=== PATIENT | female | born 1945 ===

== ENCOUNTER 2024-05-12 20:52 | Outpatient (REF) | payer MEDICARE, SELFPAY ==
--- OUTSIDE RECORDS SUMMARY | 2024-05-12 20:56 | XMS_ITS | Encounter Summary ---
Author Organization [facility] Address [address] [place] [address] Care Team Providers Care Emr Trainer Name Role Phone Unavailable Primary Care Provider Unavailabl e Encounter Details Date Type Department Care Team (Late st Contact Info) Description 02/07/2008 10:50 EST Hospital Encounter [facility] [address] [place] [address] Odette Cox MD [address] [place] [phone] Social History Tobacco Use Types Packs/Day Years Used Date Smoking Tobacco: Never Smokeless Tobacco: Never Alcohol Use Standard Drinks/Week Comments Yes 0 (1 standard drink = 0.6 oz pur e alcohol) occasionally - wine Interpersonal Safety Answer Date Record ed Physically Hurt Never 10/30/2019 Verbally Threaten Not on file 10/30/2019 Comments Unknown Sex and Gender Information Value Date Recorded Sex Assigned at Not on file Legal Sex Female 18:35 EST Gender Identity Not on file Sexual Orientation Not on file documented as of this encounter Plan of Treatment Upcoming Encounters Date Type Department Care Team (Late st Contact Info) Description 07/12/2024 11:00 EDT Office Visit [facility] Endocrinology - [address] [place], [place] [phone] Dana Lee, DO [address] [place] [address] documented as of this encounter Visit Diagnoses Not on filedocumented in this encounter
--- OUTSIDE RECORDS SUMMARY | 2024-05-12 20:56 | XMS_ITS | Encounter Summary ---
Author Organization [facility] Address [address] [place] [address] Care Team Providers Care Slot Floorperson Name Role Phone Brittani Gardiner MD Primary Care Provider +1- [phone] Reason for Visit * Reason Comments Skin Exam annual full body Encounter Details Date Type Department Care Team (Late st Contact Info) Description 08/02/2013 11:00 EDT Office Visit [facility] Dermatology 5th Floor [facility] [address] [place] [address] Mae Diamond MD [address] [place] [address] [place] [phone] Neoplasm of unspecified nature of bone, soft tissue, and skin (Primary Dx) Social History Tobacco Use Types Packs/Day Years Used Date Smoking Tobacco: Never Alcohol Use Standard Drinks/Week Comments Yes 0 (1 standard drink = 0.6 oz pur e alcohol) occasionally - wine Comments Unknown Sex and Gender Information Value Date Recorded Sex Assigned at Not on file Legal Sex Female 18:35 EST Gender Identity Not on file Sexual Orientation Not on file documented as of this encounter Discharge Diagnoses Diagnosis V10.83 PERS HX SKIN MALIGNANCY NEC[ICD-9-CM] 702.11 SEBORRHEIC KERATOSIS INFLAMED[ICD-9-CM] 239.2 BONE/SKIN NEOPLASM NOS[ICD-9-CM] documented in this encounter Ordered Prescriptions Prescription Sig Dispense Quantity Refills Last Filled Start Date End Date urea (CARMOL) 20 % cream Apply topically twice a day to rough areas.. 40 g 1 08/02/2013 4 documented in this encounter Progress Notes * Mae iDamond MD - 08/02/2013 1119 EDT S: Visit for followup on skin cancer an actinic keratosis. She has several spots on her forearms. On her right forearm she has a longstanding spot which became irritated and elevated and was scraped off accidentally. It has returned to baseline. She has an irritated spot on her left clavicle and anitch spot on her back. Notes skin peeling on distal right foot only. O: Head to toe skin exam Scalp normal Face scattered lentigos Prior scar well healed Neck normal Back scattered larger bland seborrheic keratosis and goodwin angiomas Right forearm 4 mm irritated pink/choe keratosis, and almost identical lesion on left clavicle Left forearm 9 mm soft, doughy clearish papule Right toes distally scaly. Normal pulses, Normal warmth and refill. Not pattern c/w tinea. A: History of basal cell carcinoma and actinic keratosis P: Sunscreen and sun avoidance discussed Patient should perform regular self exam Regular followup as scheduled to detect new lesions Instruction given on what to look for in terms of worrisome lesions Patient told to call us with any concerning lesions prior to next visit A: Irritated seborrheic keratosis of the right arm and left clavicle P: CRYOSURGERY PROCEDURE NOTE PATIENT INFORMATION: Nereyda Aguilera [id number] 1945 [id number] 1945 DATE OF PROCEDURE: 08/02/2013 SURGEON: Mae Diamond MD CANDLE MOLDER HAND: none INDICATIONS: SITE/LESION TYPE/DIAGNOSIS: Lesion(s) A: Location: left anterior clavicle Lesion Type/Diagnosis: 1 irritated seborrheic keratosis(es) Lesion(s) B: Location: right forearm Lesion Type/Diagnosis: 1 irritated seborrheic keratosis(es) Liquid nitrogen cryosurgery was applied to a total of 2 lesion(s) on the above stated locations. The expected reaction and healing course were discussed, as well as the possibility of incomplete resolution and/or permanent dyspigmentation. The indication, risks, benefits and alternatives to this pro cedure were discussed in detail with the patient and all questions were answered. Verbal wound care instructions were given. COMPLICATIONS: none NOTE: Mae Diamond MD 08/02/2013 11:29 A: Possible BCC, left arm, or neurofibroma P: SHAVE BIOPSY PATIENT INFORMATION: Nereyda Aguilera : MRN: [id number] SURGEON: Dara The indication, risks, benefits and alternatives to this procedure were discussed in detail with the patient and all questions were answered. Informed consent was obtained in writing. PROCEDURE NOTE Specimen A Procedure: Tangential Shave Indication: Diagnostic Biopsy Site: left forearm Anesthesia: 1% lidocaine with epinephrine 1:100,000 local infiltration Prep: Alcohol The lesion was prepped as above and locally anesthetized. The specimen was removed by tangential shave using a Dermablade??. Hemostasis was achieved with pressure and/or aluminum chloride. The wound was cleansed with alcohol and a sterile dressing was applied over Petrolatum ointment. Verbal and written wound care instructions were given.The specimen was submitted to pathology for histological evaluation. A: Toe xerosis / dryness P Does not seem vascular Is on same side as bunion surgery and may be simple friction Will recommend use of urea cream at bedtime Mae Diamond MD Chief of Dermatology [facility] * Brandi Roca - 08/02/2013 1114 EDT Review of Systems Constitutional: Negative for fever, fatigue and unexpected weight change. HENT: Negative for mouth sores. Eyes: Negative for pain. Respiratory: Negative for cough and shortness of breath. Cardiovascular: Negative for chest pain and palpitations. Gastrointestinal: Negative for nausea, vomiting, abdominal pain, diarrhea, constipation and blood in stool. Genitourinary: Positive for frequency. Negative for dysuria and hematuria. Musculoskeletal: Positive for joint swelling and arthralgias. Negative for myalgias and muscle stiffness in the morning. Skin: Negative for rash. Neurological: Negative for numbness and headaches. Endo/Heme/Allergies: Bruises/bleeds easily. Psychiatric/Behavioral: Negative for sleep disturbance. The patient is nervous/anxious. Brandi Roca 08/02/2013 Mae Diamond MD Chief of Dermatology [facility] documented in this encounter Plan of Treatment Upcoming Encounters Date Type Department Care Team (Late st Contact Info) Description 07/12/2024 11:00 EDT Office Visit [facility] Endocrinology - [address] [place] [address] Dana Lee, DO [address] [place] [address] documented as of this encounter Procedures Procedure Name Priority Date/Time Associated Diagnosis Comments SURGICAL PATHOLOGY Routine 08/02/2013 13 :15 EDT documented in this encounter Results * SURGICAL PATHOLOGY (08/02/2013 13:15 EDT) Pathology Report: SURGICAL PATHOLOGY REPORT Reports generated via electronic interface contain original data; however they are lacking the format of the original report. Caution should be taken when reading/interpreti ng unformatted reports. Name: ? NEREYDA AGUILERA S ? Accession #: ? [id number] ? : ? 1945 (Age: 67) ??F ? Collect Date: ? 08/02/2013 ? Location: ? DERM ? Receive Date: ? 08/02/2013 ? Provider: MAE DIAMOND MD Copy to: ? Final Pathologic Diagnosis: SKIN OF FOREARM, LEFT, SHAVE BIOPSY: - Basal cell carcinoma, nodular type. ?? - Basal cell carcinoma present at base of shave biopsy specimen. ?? Microscopic Description: Irregularly shaped islands of atypical basal cells infiltrate the dermis. ??The basal cells have scant cytoplasm and round dark nuclei. ??Mitotic figures and apoptotic bodies are evident. ??The nuclei at the periphery of the islands have a palisaded arrangement. ??The islands are associated with a fibromyxoid stroma and there is cleft formation between some of the islands and stroma. ??(Dr. Butterfield)/ljn Document reviewed and electronically signed by: MADHURI BUTTERFIELD MD Report ??Date: 08/03/2013 15:40 By the signature above, the attending physician certifies that he/she has personally conducted a gross and/or microscopic examination of the described specimens and rendered or confirmed the above diagnosis. Specimen(s) Received: Left forearm Clinical History: Possible BCC on left arm; clinical diagnosis code: 239.2 Gross Description: ? Received in formalin labelled with proper patient identification (initials W, R) and L forearm is a shave biopsy of an ovoid choe-white smooth papule (0.6 x 0.5 x 0.1 cm). Bisected and submitted in 1. Brittani Delaney 08/02/2013 01:38 PM End of Report [facility] 08/02/2013 13:1 5 EDT 08/02/2013 13:15 EDT us Mae Diamond MD PATHOLOGY ORDERABLES Vianca perkins Result [facility] [address] [place] [address] documented in this encounter Visit Diagnoses Diagnosis Neoplasm of unspecified nature of bone, soft tissue, and skin- Primary documented in this encounter Historical Medications * This list may reflect changes made after this encounter. cyanocobalamin 500 mcg tablet Take 500 mcg by mouth daily. cholecalciferol, Vitamin D3, 1,000 unit tablet Take 600 Units by mouth daily. added in this encounter Care Teams Slot Floorperson Relationship Specialty Start Date End Date Brittani Gardiner MD [facility] [address] [place] [address] PCP - General 06/18/12 documented as of this encounter
--- OUTSIDE RECORDS SUMMARY | 2024-05-12 20:56 | XMS_ITS | Encounter Summary ---
Author Organization [facility] Address [address] [place] [address] Care Team Providers Care Ground Operations Superintendent Name Role Phone Brittani Gardiner MD Primary Care Provider +1- [phone] Reason for Visit * Reason Onset Date Comments Appointment Related 07/11/2015 Encounter Details Date Type Department Care Team (Late st Contact Info) Description 07/11/2015 Telephone [facility] Dermatology 3rd Floor [facility] [address] [place] [address] Hal Diamond MD [address] [place] [address] [place] [phone] Appointment Related Social History Tobacco Use Types Packs/Day Years [...] on file documented as of this encounter Functional Status * Because of a physical, mental, or emotional condition, does this person have difficulty doing errands alone such as visiting a doctor's office or shopping? Answer Date of Assessment Author No 10/04/2014 8:20 EDT documented as of this encounter Mental Status * Because of a physical, mental, or emotional condition, does this person have serious difficulty concentrating, remembering, or making decisions? Answer Entry Date Author No 10/04/2014 8:20 EDT documented in this encounter Miscellaneous Notes * Telephone Encounter - Anna Hdz - 07/12/2015 1405 EDT Offered next available FUR on the same day for January. Patients decided to keep their appointments. Anna Hdz 07/12/2015 14:06 * Telephone Encounter - Federico Hazel - 07/11/2015 1617 EDT Patient called stating that the appointment that was bumped to 5.17.16 does not work for either heror her ( Madi Aguilera 8[birth year] ). Please call to reschedule, they would like harvey seen on the same day. documented in this encounter Plan of Treatment Upcoming Encounters Date Type Department Care Team (Late st Contact Info) Description 07/12/2024 11:00 EDT Office Visit [facility] Endocrinology - [address] [address] Dana Lee, [address] [place] [phone] documented as of this encounter Visit Diagnoses Not on filedocumented in this encounter Care Teams Ground Operations Superintendent Relationship Specialty Start Date End Date Brittani Gardiner MD [address] [place] [address] [address] [place] [address] PCP - General 06/18/12 documented as of this encounter
--- OUTSIDE RECORDS SUMMARY | 2024-05-12 20:56 | XMS_ITS | Encounter Summary ---
Author Organization [facility] Address [address] [place] [address] Care Team Providers Care Ammonia Box Operator Name Role Phone Unavailable Primary Care Provider Unavailabl e Encounter Details Date Type Department Care Team (Late st Contact Info) Description 02/09/2007 10:02 EST Hospital Encounter [facility] [address] [place] [address] Odette Cox MD [address] [place] [phone] Social History Tobacco Use Types Packs/Day Years [...] Info) Description 07/12/2024 11:00 EDT Office Visit [facility] Endocrinology - [address] [place], [place] [phone] Dana Lee, DO [address] [place] [address] documented as of this encounter Visit Diagnoses Not on filedocumented in this encounter
--- OUTSIDE RECORDS SUMMARY | 2024-05-12 20:56 | XMS_ITS | Encounter Summary ---
Author Organization [facility] Address [address] [place] [address] Care Team Providers Care Tongue Lining Stitcher Name Role Phone Brittani Gardiner MD Primary Care Provider +1- [phone] Reason for Visit * Reason Comments Skin Lesion Here for FBSE. Encounter Details Date Type Department Care Team (Late st Contact Info) Description 09/10/2021 13:00 EDT Office Visit [facility] Dermatology 5th Floor [facility] [address] [place] [address] Hal Diamond MD [address] [place] [address] [place] [phone] History of basal cell carcinoma (BCC) (Primary Dx); Seborrheic keratoses Social History Tobacco Use Types Packs/Day Years [...] shopping? Answer Date of Assessment Author No 08/21/2017 13:49 EDT documented as of this encounter Mental Status * Because of a physical, mental, or emotional condition, does this person have serious difficulty concentrating, remembering, or making decisions? Answer Entry Date Author No 08/21/2017 13:49 EDT documented in this encounter Progress Notes * Benjamin Delgado - 09/10/2021 1300 EDT DIVISION OF DERMATOLOGY PROGRESS NOTE - 09/09/2021 No chief complaint on file. DERMATOLOGIC HISTORY: No specialty comments available. Past Medical History: Diagnosis Date ??? Arthritis ??? Back pain ??? Basal cell carcinoma 1998 left alevism/forehead ??? Basal cell carcinoma 09/2014 left nasal ala, s/p mohs ??? Joint pain ??? Joint swelling ??? Osteoporosis ??? Wears glasses SUBJECTIVE: Ms. Aguilera has a history of BCC. She presents for a skin examination with the followingnew concerns today: ?? Chronic itch of lower back with no associated rash. For full Medical, Surgical, Family, and Social histories as well as Review of Systems, Medications and Allergies please see those sections of this encounter in the electronic chart which I have personally reviewed. OBJECTIVE: FEMALE COMPLETE SKIN EXAM EXCEPT BREASTS AND GENITALIA: Cutaneous examination including the head, neck, shoulders, axillae, upper extremities, hands, chest, abdomen, back, buttocks, lower extremitiesand feet is performed. Examination of the breasts and genitalia was declined by the paitent today. Significant findings noted below: ?? Well-healed surgical scars of left alevism and left nose without signs of recurrence ?? Scattered stuck-on choe-king papules and plaques of the trunk and extremities ASSESSMENT & PLAN: 1) History of BCC ?? PREVENTION: Patient advised that individuals with a history of skin cancer have an increased risk for development of new skin cancers. Recommended regular self-skin examinations and to call our office for any new, changing or ugly duckling skin lesions prior to next appointment. The importanceof sun avoidance and sun protection with clothing and broad spectrum sunscreens (SPF 30 or above) for primary prevention of new skin cancers reviewed. 2) Seborrheic keratoses ?? Reassurance provided. Return for follow up in 1 year, sooner as needed. Cari Briseno 09/09/2021 15:13 Attestation statement: I performed or was present during the amato or critical portions of the visit and participated in the management of the patient. I agree with the findings and plan of care documented in the resident's/fellow's note. Hal Diamond MD Chief of Dermatology [facility] documented in this encounter Miscellaneous Notes * Addendum Note - Miryam Al - 09/10/2021 1300 EDTAddended by: MIRYAM AL on: 09/15/2021 15:09 Modules accepted: Level of Service documented in this encounter Plan of Treatment Upcoming Encounters Date Type Department Care Team (Late st Contact Info) Description 07/12/2024 11:00 EDT Office Visit [facility] Endocrinology - [address] [address] Dana Lee, [address] [place] [phone] documented as of this encounter Visit Diagnoses Diagnosis History of basal cell carcinoma (BCC)- Primary Seborrheic keratoses documented in this encounter Care Teams Tongue Lining Stitcher Relationship Specialty Start Date End Date Brittani Gardiner MD [address] [place] [address] [address] [place] [address] PCP - General 06/18/12 documented as of this encounter
--- OUTSIDE RECORDS SUMMARY | 2024-05-12 20:56 | XMS_ITS | Encounter Summary ---
Author Organization [facility] Address [address] [place] [address] Care Team Providers Care Social Worker Masters Name Role Phone Brittani Gardiner MD Primary Care Provider +1- [phone] Encounter Details Date Type Department Care Team (Late st Contact Info) Description 10/05/2012 Abstract [facility] Foot & Ankle Program - [facility] [address] [place] [address] Jose Cruz Pittman Eli [address] [place] [address] Social History Tobacco Use Types Packs/Day Years [...] Info) Description 07/12/2024 11:00 EDT Office Visit [facility] Endocrinology - [facility] [address] [place] [address] Dana Lee, DO [address] [place] [address] documented as of this encounter Visit Diagnoses Not on filedocumented in this encounter Care Teams Social Worker Masters Relationship Specialty Start Date End Date Brittani Gardiner MD [facility] [address] [place] [address] PCP - General 06/18/12 documented as of this encounter
--- OUTSIDE RECORDS SUMMARY | 2024-05-12 20:56 | XMS_ITS | Encounter Summary ---
Author Organization [facility] Address [address] [place] [address] Care Team Providers Care Bit Tapper Name Role Phone Tree Connell MD Primary Care Provider Encounter Details Date Type Department Care Team (Late st Contact Info) Description 12/20/2009 Results Only [facility] Laboratory Services - [facility] [address] [place], [place] [address] Tree Connell MD [address] [address] Social History Tobacco Use Types Packs/Day Years Used Date Smoking Tobacco: Never Assessed Comments Unknown Sex and Gender Information Value Date Recorded Sex Assigned at Not on file Legal Sex Female 18:35 EST Gender Identity Not on file Sexual Orientation Not on file documented as of this encounter Plan of Treatment Upcoming Encounters Date Type Department Care Team (Late st Contact Info) Description 07/12/2024 11:00 EDT Office Visit [facility] Endocrinology - [address] [address] Dana Lee, [address] [place] [phone] documented as of this encounter Procedures Procedure Name Priority Date/Time Associated Diagnosis Comments CYTOPATHOLOGY Routine 12/20/2009 0:00 EDT documented in this encounter Results * CYTOPATHOLOGY (12/20/2009 0:00 EDT) Pathology Report: CYTOPATHOLOGY REPORT ? Reports generated via electronic interface contain original data; ? however they are lacking the format of the original report. ? Caution should be taken when reading/interpreti ng unformatted reports. ? Name: ? NEREYDA AGUILERA ? Accession #: ? [id number] ? : ? 1945 (Age: 64) ??F ?Collect Date: ? 12/20/2009 ? Location: ? [facility] ? Receive Date: ? 12/21/2009 ? Provider: ?TREE DIADAIRE MD ? Copy to: ? Specimen/Source: ?Pap Test, Vagina/Cervix, ThinPrep Imaging System with ?? manual evaluation ? Last Menstrual Period: ? Menstrual/Pregnanc y Status: ? Menopausal ? Other: ? Additional clinical information: R/o cancer ? HPVA - HPV testing requested if ASC-US on the current ThinPrep Pap test. ? SPECIMEN ADEQUACY ? Unsatisfactory for Evaluation, ? - insufficient numbers of squamous epithelial cells (less than 10% of expected ?? cellularity) ? - sample preparation compromised by excessive blood ? GENERAL CATEGORIZATION ? Specimen processed and examined, but unsatisfactory for evaluation of ? epithelial abnormality. ? Recommend repeat Pap test or further follow up, as clinically indicated. ? Document reviewed and electronically signed by: ? Stephania Verville,CT(ASCP) ? Report Date: ??12/27/2009 15:46 ? End of Report ? [facility] 12/20/2009 12/21/2009 us Tree Connell MD PATHOLOGY ORDERABLES Final R esult [facility] [address] [place] [address] documented in this encounter Visit Diagnoses Not on filedocumented in this encounter Care Teams Bit Tapper Relationship Specialty Start Date End Date Tree Connell MD [address] [address] PCP - General 02/02/09 06/17/12 documented as of this encounter
--- OUTSIDE RECORDS SUMMARY | 2024-05-12 20:56 | XMS_ITS | Encounter Summary ---
Author Organization [facility] Address [address] [place] [address] Care Team Providers Care National Expansion Recruiter Name Role Phone Brittani Gardiner MD Primary Care Provider +1- [phone] Reason for Referral * Radiology Services (Routine/Next Available) - Closed Specialty Diagnoses / Procedures Referred By Contac t Referred To Contact Diagnoses Hallux valgus (acquired) Procedures FOOT 3 OR MORE VIEWS Jose Cruz Pittman DPM Phone: tel: fax: Referral ID Status Reason Start Date Expiration Date Visits Re quested Visits Authorized [id number] Closed 10/04/2012 1 1 Reason for Visit * Reason Comments Foot Problem Bilateral pes planus - Estela would like a review of her feet and is wondering whether she needs orthotics. Also has sharp pain in between the 2nd and 3rd toe after walking long distances. Foot Problem Right bunion correct ion about 10 years ago. She is still having discomfort. Encounter Details Date Type Department Care Team (Late st Contact Info) Description 10/04/2012 11:00 EDT Office Visit [facility] Foot & Ankle Program - [address] [address] Jose Cruz Pittman DPM [address] [place] [phone] Hallux valgus (acquired) (Primary Dx) Discharge Disposition: Auto Discharge Social History Tobacco Use Types Packs/Day Years Used Date Smoking Tobacco: Never Alcohol Use Standard Drinks/Week Comments No 0 (1 standard drink = 0.6 oz pur e alcohol) Comments Unknown Sex and Gender Information Value Date Recorded Sex Assigned at Not on file Legal Sex Female 18:35 EST Gender Identity Not on file Sexual Orientation Not on file documented as of this encounter Discharge Disposition Disposition Code Departure Means Destination Auto Discharge documented in this encounter Progress Notes * Jose Cruz Pittman DPM - 10/05/2012 1012 EDT HISTORY OF PRESENT ILLNESS: A 67-year-old female who presents today with multiple concerns. She states that she has had a history of neuroma type pain on the balls of both feet. She also has concern of a right bunion deformity that was corrected 10 years ago by another physician. However, she has noticed some persistent pain and is worried about recurrence of the actual bunion. She has questions regarding new orthotics. She has used orthotics for many years. She tends to gravitate towards widershoes. If she does not wear the proper support she tends to get achiness in both arches. She is retired but tries to be active. She enjoys gardening for recreation. The patient's past medical history, medications, allergies, past surgical, social and family history were reviewed and noted in the electronic health record. PHYSICAL EXAMINATION: Psychological exam: The patient is awake, alert and oriented x3. Constitutional exam: The patient is in no acute distress. Vascular exam: Her dorsalis pedis and posterior tibial arterial pulses are 2/4 bilateral. Neurologic exam: Epicritic sensations are grossly intact. Muscle strength is 5/5 bilateral. Dermatologic exam: Web spaces are clear. Mild hyperkeratotic tissue buildup is noted beneath the second metatarsal heads, bilateral. Orthopedic exam: She has hallux abductovalgus on the right foot. There is mild tenderness on palpation over the medial aspect of the 1st metatarsal head. The proper digital nerve to the dorsal medialaspect of the hallux may be getting irritated over the medial prominence. Hammertoe contractures are noted on digits 2 through 5. There is anterior displacement of the fat pad leading towards overallfat pad atrophy submetatarsal head. She also has intrinsic musculature wasting. This is also noted in the palmar surface of her hand. Overall, she has a flexible cavus foot type. She has a fairly aggressive high arch orthotic that is stiff and has an aggressive metatarsal pad built into it as well. IMPRESSIONS: 1. Hallux abductovalgus deformity, right foot. 2. Bilateral metatarsalgia pain secondary to hammertoe contractures and fat pad atrophy. TREATMENT PLAN: X-rays of the right foot were taken. Evidence of previous bunion surgery is noted with retained screw within the distal metaphysis, presumably from a distal 1st metatarsal osteotomy. There is recurrence of the intermetatarsal angle to measurable amount of 12 degrees. The joint spaceis fairly well maintained. She has a narrow 1st metatarsal. TREATMENT PLAN: Conservative and surgical treatment options were reviewed. At this point, she wouldlike to just pursue getting a new pair of custom molded orthotics. This will have a minimal arch fill with a regular depth heel cup. A cushioned pad will be used for comfort. These will be full length. We will go with a 1/8-inch soft metatarsal pad to offload the ball of the foot. We will cast her for these in the near future and follow up with her appropriately. If revisional surgery is done on the right foot, this would most likely involve a closing base wedge osteotomy in order to adequatelycorrect the deformity. documented in this encounter Miscellaneous Notes * Scanned Note-Null - FORESTRY CONSULTANT, SCAN 2 - 10/11/2012 0722 EDT documented in this encounter Plan of Treatment Upcoming Encounters Date Type Department Care Team (Late st Contact Info) Description 07/12/2024 11:00 EDT Office Visit [facility] Endocrinology - [address] [address] Dana Lee DO [address] [place] [phone] documented as of this encounter Procedures Procedure Name Priority Date/Time Associated Diagnosis Comments FOOT 3 OR MORE VIEWS Routine 10/04/2012 11:53 EDT Hallux valgus (acquired) documented in this encounter Results * FOOT 3 OR MORE VIEWS (10/04/2012 11:53 EDT) Anatomical Region Laterality Modality Other 10/04/2012 11:5 3 EDT 10/05/2012 12:49 EDT Narrative 10/05/2012 12:49 EDT FOOT 3 OR MORE VIEWS ??10/04/2012 11:53 AM Signs and Symptoms/Comments: ??735.0-Hallux valgus (acquired)-ICD-9-CM; bunion pain Comparison: None. Findings: AP, oblique, and lateral weight-bearing views of the right foot show post surgical changes from prior slice correction as noted by the shaving of the medial eminence of the head of the 1st metatarsal as well as the proximal 1st metatarsal osteotomy stabilized with a single screw. There is mild residual hallux valgus. There is no evidence of failure or loosening of the hardware. There are moderate degenerative changes in the 1st MTP joint and hallucal-sesamoidal complex. No acute fracture seen. No evidence of avascular necrosis nor Freiberg's infraction. Mineralization is age appropriate. There is mild swelling of the medial soft tissues at the level of the head of the 1st metatarsal and in a lesser extent the lateral soft tissues at the level of the head of the 5th metatarsal perhaps related to residual soft tissue bunion and bunionette formation, respectively. Soft tissues are otherwise grossly unremarkable. Procedure Note 10/05/2012 FOOT 3 OR MORE VIEWS 10/04/2012 11:53 AM Signs and Symptoms/Comments: 735.0-Hallux valgus (acquired)-ICD-9-CM; bunion pain Comparison: None. Findings: AP, oblique, and lateral weight-bearing views of the right foot show post surgical changes from prior slice correction as noted by the shaving of the medial eminence of the head of the 1st metatarsal as well as the proximal 1st metatarsal osteotomy stabilized with a single screw. There is mild residual hallux valgus. There is no evidence of failure or loosening of the hardware. There are moderate degenerative changes in the 1st MTP joint and hallucal-sesamoidal complex. No acute fracture seen. No evidence of avascular necrosis nor Freiberg's infraction. Mineralization is age appropriate. There is mild swelling of the medial soft tissues at the level of the head of the 1st metatarsal and in a lesser extent the lateral soft tissues at the level of the head of the 5th metatarsal perhaps related to residual soft tissue bunion and bunionette formation, respectively. Soft tissues are otherwise grossly unremarkable. Jose Cruz Pittman DP IMG DI[facility]NOSTIC IM[facility] SHANITA PULIDO Final Result documented in this encounter Visit Diagnoses Diagnosis Hallux valgus (acquired)- Primary documented in this encounter Historical Medications * This list may reflect changes made after this encounter. MAGNESIUM ORAL Take 400 mg by mouth daily. ERGOCALCIFEROL, VITAMIN D2, (VITAMIN D ORAL) Take by mouth daily. added in this encounter Care Teams National Expansion Recruiter Relationship Specialty Start Date End Date Brittani Gardiner MD [facility] [address] [place] [address] PCP - General 06/18/12 documented as of this encounter
--- OUTSIDE RECORDS SUMMARY | 2024-05-12 20:56 | XMS_ITS | Encounter Summary ---
Author Organization [facility] Address [address] [place] [address] Care Team Providers Care Net Software Engineer Name Role Phone Brittani Gardiner MD Primary Care Provider [phone]- [phone] Reason for Visit * Reason Comments Follow-up Hallux abductovalgus deformity, right foot, Bilateral metatarsalgia pain secondary to hammertoe contractures and fat pad atrophy -- Estela is here for follow up on her orthotics. Estela feels as if the orthotics puts a lot of pressure on the dorsal aspect of the right foot. The orthotic on the left foot is stimulating the pins and needles sensation from the neuroma. Encounter Details Date Type Department Care Team (Late st Contact Info) Description 12/20/2012 9:30 EDT Office Visit [facility] Foot & Ankle Program - [address] [address] Jose Cruz Pittman DPM [address] [place] [phone] Hallux valgus (acquired) (Primary Dx); Metatarsalgia Discharge Disposition: Auto Discharge Social History Tobacco [...] Notes * Jose Cruz Pittman DPM - 12/20/2012 1258 EDT SUBJECTIVE: The patient presents today for followup on her custom molded orthotics. She had the orthotics made to help with metatarsalgia pain secondary to bunion and hammertoe contractures. She finds that the arch support component of the orthotic as well as the metatarsal pad is fitting properly.However, she finds that it is somewhat tight in the toe box of the shoe and thus is aggravating herbunion on the side of the bump as well as in her opinion, causing neuroma like symptoms. OBJECTIVE: The orthotic appears to be fitting her properly. She does have bunion and hammertoe contractures as already mentioned. There is no pain beneath the ball of the foot. Inspection of her shoes show that she did not remove the inner sole that came with the shoe and simply put her new orthotic on top. IMPRESSION: Hammertoe contractures and bunion deformities leading towards metatarsalgia symptoms. TREATMENT PLAN: My feeling is that the orthotics should work fine. She was strongly advised to remove the inner sole from whatever shoe she is wearing prior to placement of the orthotic and subsequently her foot. She will try this and will let us know how she is doing over the next few months. documented in this encounter Plan of Treatment Upcoming Encounters Date Type Department Care Team (Late st Contact Info) Description 07/12/2024 11:00 EDT Office Visit [facility] Endocrinology - [address] [address] Dana Lee DO [address] [place] [phone] documented as of this encounter Visit Diagnoses Diagnosis Hallux valgus (acquired)- Primary Metatarsalgia Enthesopathy of ankle and tarsus, unspecified documented in this encounter Care Teams Net Software Engineer Relationship Specialty Start Date End Date Brittani Gardiner MD [address] [place] [address] [address] [place] [address] PCP - General 06/18/12 documented as of this encounter
--- OUTSIDE RECORDS SUMMARY | 2024-05-12 20:56 | XMS_ITS | Clinical Summary ---
Author Organization [facility] Address [address] [place] [address] Care Team Providers Care Clinical Athletic Instructor Name Role Phone Brittani Gardiner MD Primary Care Provider +1- [phone] Allergies No known active allergies Medications UNABLE TO FIND Med Name: Zyflamead Active ERGOCALCIFEROL, VITAMIN D2, (VITAMIN D ORAL) Take by mouth daily. Active MAGNESIUM ORAL Take 400 mg by mouth daily. Active cholecalciferol, Vitamin D3, 1,000 unit tablet Take 600 Units by mouth daily. Active cyanocobalamin 500 mcg tablet Take 500 mcg by mouth daily. Active urea (CARMOL) 20 % cream Apply topically twice a day to rough areas.. 40 g 1 4 Active Additional Information Patient not taking.Reported on 08/22/2016 GLUC/CHND/OM3/DH A/EPA/FISH/STR (GLUCOSAMINE CHONDROITIN PLUS ORAL) Take by mouth. Activ e TURMERIC ORAL Take 500 mg by mouth. Active Active Problems Problem Noted Date Diagnosed Date History of basal cell carcinoma 02/04/2010 Overview (10/04/2014): Left holiness Left arm 2013 Left nose 2014 Surgical History Surgery Date Site/Laterality Comments BREAST SURGERY BUNIONECTOMY 2003 Right BREAST SURGERY 1999 Left benign papaloma removal MOHS SURGERY 09/2014 Left nasal ala, BCC Medical History Medical History Date Comments Arthritis Wears glasses Back pain Joint pain Joint swelling Osteoporosis Basal cell carcinoma 03/30/1998 left holiness /forehead Basal cell carcinoma 09/27/2014 left nasal ala, s/p mohs Family History Medical History Relation Comments Arthritis Father Cancer Father Prostate Heart Disease Father Hypertension Father *Other(comment) Mother Emphysema Arthritis Mother Early Mother Relation Status Comments Father Alive Mother Social History Tobacco Use Types Packs/Day Years Used Date Smoking Tobacco: Never Smokeless Tobacco: Never Tobacco Cessation:Counseling Given: Not Answered Alcohol Use Standard Drinks/Week Comments Yes 0 [...] on file Sexual Orientation Not on file Obstetrics History Last Filed Vital Signs Vital Sign Reading Time Taken Comments Blood Pressure 140/70 06/12/2023 1309 EDT Pulse 63 06/12/2023 1309 EDT Temperature 36.1 ??C (97 ??F) 10/04/2014 0822 EDT Respiratory Rate - - Oxygen Saturation - - Inhaled Oxygen Concentration - - Weight 53.4 kg (117 lb 11.2 oz) 06/12/2023 1309 EDT Height 154.9 cm (5' 1) 06/12/2023 1309 EDT Body Mass Index 22.24 06/12/2023 1309 EDT Plan of Treatment Upcoming Encounters Date Type Department Care Team (Late st Contact Info) Description 07/12/2024 11:00 EDT Office Visit [facility] Endocrinology - [address] [address] Dana Lee, DO [address] [place] [phone] Health Maintenance Due Date Last Done Comments RSV Immunization ( o r 60+ Years) (1 - 1-dose 75+ series) 08/11/2018 Fall Risk Screening 08/21/2018 08/21/2017, 5 COVID-19 Vaccine (2023- season) [address] [place] [id number] MEDICARE [facility] Care Teams Clinical Athletic Instructor Relationship Specialty Start Date End Date Brittani Gardiner MD [facility] [address] [place] [address] PCP - General 06/18/12
--- OUTSIDE RECORDS SUMMARY | 2024-05-12 20:56 | XMS_ITS | Encounter Summary ---
Author Organization [facility] Address [address] [place] [address] Care Team Providers Care Station Installation Supervisor Name Role Phone Unavailable Primary Care Provider Unavailabl e Encounter Details Date Type Department Care Team (Late st Contact Info) Description 02/07/2008 Before PRISM Converted Visit (Maple) [facility] - Maple conversion [address] [place], [place] [phone] Anna Leblanc MD [employer] [address] [place] [address] Social History Tobacco Use Types Packs/Day Years Used Date Smoking Tobacco: Never Assessed Comments Unknown Sex and Gender Information Value Date Recorded Sex Assigned at Not on file Legal Sex Female 18:35 EST Gender Identity Not on file Sexual Orientation Not on file documented as of this encounter Progress Notes * Anna Leblanc - 10/20/2008 0016 EDT DIVISION OF DERMATOLOGY PROGRESS/FOLLOWUP NOTE - 02/07/2008 CHIEF COMPLAINT Skin check. PROBLEM History of basal cell carcinoma on the left forehead treated with Mohs surgery. SUBJECTIVE Ms. Aguilera is a 62-year-old female who presents today for a followup visit and full skin exam afterlast being seen in the clinic on 02/09/2007. At that visit she had no concerning skin findings. Today she has several concerns, one of which is a lesion on her right upper back which has been presentfor many years; however, she feels it is enlarging and would like us to check this area. She notes it is quite dark in color and is concerned. There is a lesion on her lower abdomen which recently has become crusty and fallen off so she would like this area checked. She also has multiple red bumps over her torso that she would like us to check as well. No other skin concerns today. Patient has had no interval health status change. No constitutional symptoms today or any other complaints referable to the skin. CURRENT MEDICATION Calcium. ALLERGIES She has no medication allergies. OBJECTIVE This is a generally healthy-appearing elderly female in no acute distress. The scalp, face, neck, back, chest, abdomen, intertriginous areas, and extremities were examined. There were no lesions suspicious for malignancy. Pertinent findings on the patient's skin exam include on the right upper backthere is a 1.5 cm stuck-on brown plaque with some white scale. Over the patient's torso there are 20 to 30 well-demarcated 1 to 2 mm red papules. On her central lower abdomen just below the umbilicusthere is a 5mm yellow choe flat topped stuck on papule. The remainder of her exam is unremarkable. ASSESSMENT 1. Benign seborrheic keratoses of the lower abdomen and right upper back. 2. Benign goodwin angiomas of the torso. 3. History of basal cell carcinoma, no evidence of recurrence. PLAN 1. Patient education. We discussed the above impressions including giving reassurance regarding herskin exam today. We do not see any concerning findings and encouraged her simply to use good sun protection and sun protective clothing in the future. 2. We will see her back in one year for a full skin exam and sooner if there are any new questions or concerns. saw and examined the patient with the resident/fellow. I agree with the findings and plan of care documented in the resident's/fellow's note. Signed by Odette Cox MD 03/12/2008 13:39 Reviewed by Anna Leblanc MD 02/08/2008 15:30 Anna Leblanc MD Odette Cox MD - Anna Leblanc MD - JACQUES Job ID: [id number] Doc ID: [id number] cc: Madi Connell MD documented in this encounter Plan of Treatment Upcoming Encounters Date Type Department Care Team (Late st Contact Info) Description 07/12/2024 11:00 EDT Office Visit [facility] Endocrinology - [address] [address] Dana Lee, DO [address] [place] [phone] documented as of this encounter Visit Diagnoses Not on filedocumented in this encounter
--- OUTSIDE RECORDS SUMMARY | 2024-05-12 20:56 | XMS_ITS | Encounter Summary ---
Author Organization [facility] Address [address] [place] [address] Care Team Providers Care Software Test Technician Name Role Phone Brittani Gardiner MD Primary Care Provider [phone]- [phone] Reason for Visit * Reason Comments Procedure Hallux abductovalgus deformity, right foot and Bilateral metatarsalgia pain secondary to hammertoe contractures and fat pad atrophy - Estela is here for orthotic casting. Encounter Details Date Type Department Care Team (Latest Contact Info) Description 10/15/2012 9:00 EDT Office Visit [facility] Foot & Ankle Program - [address] [address] Jose Cruz Pittman DPM [address] [place] [phone] Metatarsalgia (Primary Dx); Hallux valgus (acquired) Social History Tobacco Use Types Packs/Day Years [...] as of this encounter Progress Notes * Jose Cruz Pittman DPM - 10/15/2012 0941 EDT The patient was casted today for custom molded orthotics. This was utilizing a digital scanner device to recreate a three-dimensional digital image of her feet. Her feet were captured in a subtalar joint neutral position and were checked for accuracy. The orthotics will be full length with a cushioned top cover. They will incorporate a normal heel cup depth and will have minimal arch fill so as to meet the contour of the shape of her higher arched foot. One eighth inch metatarsal padding will also be utilized to offload the ball of the foot. Once she has had a chance to wear these and break them in we will follow up with her. documented in this encounter Miscellaneous Notes * Scanned Note-Null - POURER, SCAN 2 - 10/25/2012 1415 EDT documented in this encounter Plan of Treatment Upcoming Encounters Date Type Department Care Team (Late st Contact Info) Description 07/12/2024 11:00 EDT Office Visit [facility] Endocrinology - [address] [address] Dana Lee DO [address] [place] [phone] documented as of this encounter Visit Diagnoses Diagnosis Metatarsalgia- Primary Enthesopathy of ankle and tarsus, unspecified Hallux valgus (acquired) documented in this encounter Care Teams Software Test Technician Relationship Specialty Start Date End Date Brittani Gardiner MD [facility] [address] [place] [address] PCP - General 06/18/12 documented as of this encounter
--- OUTSIDE RECORDS SUMMARY | 2024-05-12 20:56 | XMS_ITS | Encounter Summary ---
Author Organization [facility] Address [address] [place] [address] Care Team Providers Care Phototypesetting Equipment Monitor Name Role Phone Madi Connell MD Primary Care Provider [phone] Encounter Details Date Type Department Care Team (Late st Contact Info) Description 02/01/2010 Abstract [facility] Dermatology 5th Floor [facility] [address] [place], [place] [phone] Odette Cox MD [address] [place] [phone] Social History Tobacco Use Types Packs/Day Years [...] Info) Description 07/12/2024 11:00 EDT Office Visit [facility] Endocrinology - [address] [address] Dana Lee, DO [address] [place] [phone] documented as of this encounter Visit Diagnoses Not on filedocumented in this encounter Historical Medications * This list may reflect changes made after this encounter. CALCIUM/CHOLECALC IFEROL (CALCIUM-VITAMIN D3 ORAL) Take by mouth daily. 02/01/2010 06/22/2012 added in this encounter Care Teams Phototypesetting Equipment Monitor Relationship Specialty Start Date End Date Madi Connell MD [address] [address] PCP - General 02/02/09 06/17/12 documented as of this encounter
--- OUTSIDE RECORDS SUMMARY | 2024-05-12 20:56 | XMS_ITS | Encounter Summary ---
Author Organization [facility] Address [address] [place] [address] Care Team Providers Care Shale Planer Operator Name Role Phone Tree Daniels MD Primary Care Provider [phone] Encounter Details Date Type Department Care Team (Late st Contact Info) Description 02/04/2011 Results Only [facility] Laboratory Services - [facility] [place] [address] [place], [place] [address] Tree Daniels MD [address] [address] Social History Tobacco Use Types Packs/Day Years [...] Info) Description 07/12/2024 11:00 EDT Office Visit [facility] Endocrinology - [address] [address] Dana Lee, DO [address] [place] [phone] documented as of this encounter Procedures Procedure Name Priority Date/Time Associated Diagnosis Comments PAP TEST- RESULT ONLY Routine 02/04/2011 0:00 EST documented in this encounter Results * PAP TEST- RESULT ONLY (02/04/2011 0:00 EST) Pathology Report: CYTOPATHOLOGY REPORT Reports generated via electronic interface contain original data; however they are lacking the format of the original report. Caution should be taken when reading/interpreti ng unformatted reports. Name: ? NEREYDA AGUILERA ? Accession #: ? [id number] : ? 1945 (Age: 65) ??F ?Collect Date: ? 02/04/2011 Location: ? [facility] ? Receive Date: ? 02/05/2011 Provider: ?TREE DANIELS MD Copy to: ? Specimen/Source: ?Pap Test, Cervix, ThinPrep Imaging System with manual evaluation Last Menstrual Period: ? Menstrual/Pregnanc y Status: ? Menopausal Other: ? Additional clinical information: R/o cancer ? SPECIMEN ADEQUACY ? Satisfactory for Evaluation - assessment of transformation zone component not applicable ( e.g. atrophy, vaginal sample, hysterectomy) - scant squamous epithelial component GENERAL CATEGORIZATION ? Negative for Intraepithelial Lesion or Malignancy ? Document reviewed and electronically signed by: ? JANIYA Plaza(ASCP) ? Report Date: ??02/10/2011 14:31 End of Report [facility] 02/04/2011 02/05/2011 us Tree Daniels MD PATHOLOGY ORDERABLES Final R esult [facility] [address] [place] [address] documented in this encounter Visit Diagnoses Not on filedocumented in this encounter Care Teams Shale Planer Operator Relationship Specialty Start Date End Date Tree Daniels MD [address] [address] PCP - General 02/02/09 06/17/12 documented as of this encounter
--- OUTSIDE RECORDS SUMMARY | 2024-05-12 20:56 | XMS_ITS | Encounter Summary ---
Author Organization [facility] Address [address] [place] [address] Care Team Providers Care Assistant Reading Teacher Name Role Phone Brittani Gardiner MD Primary Care Provider [phone] Reason for Visit * Reason Comments Skin Exam hx multiple BCC Encounter Details Date Type Department Care Team (Late st Contact Info) Description 08/22/2016 13:15 EDT Office Visit [facility] Dermatology 5th Floor [facility] [address] [place] [address] Mae Diamond MD [address] [place] [address] [place] [phone] Neoplasm of uncertain behavior of skin (Primary Dx); Personal history of other malignant neoplasm of skin Discharge Disposition: Auto Discharge Social History Tobacco [...] shopping? Answer Date of Assessment Author No 08/14/2015 8:17 EDT documented as of this encounter Mental Status * Because of a physical, mental, or emotional condition, does this person have serious difficulty concentrating, remembering, or making decisions? Answer Entry Date Author No 08/14/2015 8:17 EDT documented in this encounter Discharge Diagnoses Diagnosis D48.5 Neoplasm of uncertain behavior of skin-D48.5[ICD-10-CM] Z85.828 Personal history of other malignant neoplasm of skin-Z85.828[ICD-10-CM] L57.0 Actinic keratosis-L57.0[ICD-10-CM] documented in this encounter Discharge Disposition Disposition Code Departure Means Destination Auto Discharge documented in this encounter Progress Notes * Talita Tracey - 08/22/2016 1315 EDT Review of Systems Constitutional: Negative for fatigue, fever and unexpected weight change. HENT: Negative for mouth sores. Eyes: Negative for pain. Respiratory: Negative for cough and shortness of breath. Cardiovascular: Negative for chest pain and palpitations. Gastrointestinal: Negative for abdominal pain, blood in stool, constipation, diarrhea, nausea and vomiting. Genitourinary: Negative for dysuria, frequency and hematuria. Musculoskeletal: Positive for arthralgias and muscle stiffness in the morning. Negative for myalgias and joint swelling. Skin: Negative for rash. Neurological: Negative for numbness and headaches. Endo/Heme/Allergies: Bruises/bleeds easily. Psychiatric/Behavioral: Negative for sleep disturbance. The patient is not nervous/anxious. Talita Tracey 08/22/2016 13:18 * Tree Anderson MD - 08/22/2016 1315 EDT Images from the original note were not included. S: Followup on multiple BCC New growth on the lower anterior neck, but has been asymptomatic. Otherwise no new lesions that areitching, changing, bleeding, or ulcerating. Past Medical History: Diagnosis Date ??? Arthritis ??? Back pain ??? Basal cell carcinoma 1998 left nondenominational/forehead ??? Basal cell carcinoma 09/2014 left nasal ala, s/p mohs ??? Joint pain ??? Joint swelling ??? Osteoporosis ??? Wears glasses O: Complete physical exam of the skin reveals: On the anterior inferior neck there is a 3mm pearly papule with pigment globules. Multiple well healed scars with no evidence of tumor recurrence No other skin lesions concerning for basal cell carcinoma, squamous cell carcinoma, or melanoma. A: History of multiple BCC Anterior inferior neck with likely new basal cell carcinoma P: Shave biopsy of neck lesion Sunscreen and sun avoidance discussed Patient should perform regular self exam Regular followup as scheduled to detect new lesions Instruction given on what to look for in terms of worrisome lesions Patient told to call us with any concerning lesions prior to next visit Annual followup Tree Anderson MD 08/22/2016 SHAVE BIOPSY PROCEDURE NOTE PATIENT: Nereyda Aguilera DATE OF : 1945 SEX: Female SURGEON: Mae Diamond MD BILLET SAWYER: Tree Anderson MD 08/22/2016 The indication, risks, benefits and alternatives to this procedure were discussed in detail with the patient and all questions were answered. Informed consent was obtained in writing. PROCEDURE: Tangential shave INDICATION: Diagnostic biopsy PREP: Alcohol ANESTHESIA: 1% lidocaine with epinephrine 1:200,000 local infiltration PATIENT POSITION: seated Specimen A Location: Anterior inferior neck The lesion on the above location was prepped and locally anesthetized. The specimen was removed by tangential shave using a Dermablade??. Hemostasis was achieved with pressure and aluminum chloride. The wound was cleansed with hydrogen peroxide and a sterile dressing was applied over Petrolatum ointment. Verbal and written wound care instructions were given. The specimen was submitted to pathology for histological evaluation. The patient will be notified of their pathology results by phone or letter within the next 10 days. BLOOD LOSS: Minimal COMPLICATIONS: None NOTE: None Tree Anderson MD 08/22/2016 Attestation statement: I saw and examined the patient with the resident/fellow. I agree with the findings and plan of care documented in the resident's/fellow's note. I personally performed the procedure Mae Diamond MD Chief of Dermatology [facility] documented in this encounter Plan of Treatment Upcoming Encounters Date Type Department Care Team (Late st Contact Info) Description 07/12/2024 11:00 EDT Office Visit [facility] Endocrinology - [address] [address] Dana Lee, DO [address] [place] [address] Scheduled Orders Name Type Priority Associated Diagnoses Orde r Schedule SURGICAL PATHOLOGY- ORDER ONLY Pathology Routine Neoplasm of uncertain behavior of skin Ordered: 08/22/2016 documented as of this encounter Procedures Procedure Name Priority Date/Time Associated Diagnosis Comments SURGICAL PATHOLOGY Routine 08/22/2016 19 :51 EDT documented in this encounter Results * SURGICAL PATHOLOGY (08/22/2016 19:51 EDT) Pathology Report: SURGICAL PATHOLOGY REPORT Reports generated via electronic interface contain original data; however they are lacking the format of the original report. Caution should be taken when reading/interpret ing unformatted reports. Name: ? NEREYDA AGUILERA ? Accession #: ? [id number] ? : ? 1945 (Age: 71) ??F ? Collect Date: ? 08/22/2016 ? Location: ? DERM ? Receive Date: ? 08/26/2016 ? Provider: MAE DIAMOND MD Copy to: TREE ANDERSON MD ? Final Pathologic Diagnosis: SKIN OF NECK, LEFT ANTERIOR INFERIOR, SHAVE BIOPSY: - Basal cell carcinoma, nodular type. ??See comment. - Lesion measures within 0.1 mm of the biopsy base. - Lesion measures approximately 1.0 mm to the nearest peripheral edge. Comment: The basal cell carcinoma is associated with hemorrhage and hemosiderin deposition. ??(Dr. Bolden)/ljn Document reviewed and electronically signed by: JONG BOLDEN MD Report ??Date: 08/28/2016 14:20 By the signature above, the attending physician certifies that he/she has personally conducted a gross and/or microscopic examination of the described specimens and rendered or confirmed the above diagnosis. Specimen(s) Received: Left anterior inferior neck Clinical History: Pearly papule, DDX: BCC; clinical diagnosis code: ??D48.5 Gross Description: ? Received in formalin labelled with proper patient identification (initials W, R) and left anterior inferior neck is a 0.5 x 0.4 x 0.1 cm irregular shave of [place] skin. There is an ill-defined brown-[place]ura macule (0.3 x 0.1 cm) centrally located on the skin surface, 0.1 cm from the nearest resection margin. The margin is inked blue. The tissue is trisected and entirely submitted in 1. PILO Jorge (ASCP) 08/27/2016 8:08 AM End of Report [facility] 08/22/2016 19:5 1 EDT 08/26/2016 19:51 EDT us Mae Diamond MD PATHOLOGY ORDERABLES Vianca perkins Result [facility] [address] [place] [address] documented in this encounter Visit Diagnoses Diagnosis Neoplasm of uncertain behavior of skin- Primary Personal history of other malignant neoplasm of skin documented in this encounter Care Teams Assistant Reading Teacher Relationship Specialty Start Date End Date Brittani Gardiner MD [facility] PROFESSION[employer] [address] [address] [place] [address] PCP - General 06/18/12 documented as of this encounter
--- OUTSIDE RECORDS SUMMARY | 2024-05-12 20:56 | XMS_ITS | Encounter Summary ---
Author Organization [facility] Address [address] [place] [address] Care Team Providers Care Wheel And Axle Inspector Name Role Phone Madi Connell MD Primary Care Provider [phone] Encounter Details Date Type Department Care Team (Late st Contact Info) Description 02/11/2006 Before PRISM Converted Visit (Maple) [facility] - Maple conversion [address] [place] [address] Gaby Sullivan MD FA [employer]SE[employer]IL [address] [place] [address] Social History Tobacco Use Types Packs/Day Years Used Date Smoking Tobacco: Never Assessed Comments Unknown Sex and Gender Information Value Date Recorded Sex Assigned at Not on file Legal Sex Female 18:35 EST Gender Identity Not on file Sexual Orientation Not on file documented as of this encounter Progress Notes * Declan, Conv Cnc Machinist 2Nd Shift - 04/15/2009 192 EST DIVISION OF DERMATOLOGY PROGRESS/FOLLOWUP NOTE - 02/11/2006 PROBLEM: 1. Seborrheic keratoses. 2. Basal cell carcinoma, forehead. SUBJECTIVE: Estela returns today for a followup skin exam. She was last seen here by Dr. Bledsoe on 07/30/04. She reports that she did have a basal cell carcinoma treated on her forehead by Mohs surgery five years ago when she lived in [place]. She reports that she has not noticed any new bumps across her face that she is worried about. Patient has had no interval health status change. No constitutional symptoms today or any other complaints referable to the skin. OBJECTIVE: Cutaneous examination reveals a pleasant, fair-skinned female, seated comfortably. She has a well-healed scar on the left aspect of her forehead without evidence of recurrence. The remainder of her exam reveals no precancerous or cancerous lesions. ASSESSMENT: History of basal cell carcinoma, no evidence of recurrence. PLAN: 1. The importance of sunscreen use, sun avoidance and self-examination was discussed. 2. Follow up in one year or sooner with any questions or concerns. I saw and examined the patient with Dr. Sullivan. I agree with the HPI, exam findingsand the plan of care as outlined above. I have documented any additions/changes in the body of the note. Edited and Signed by Deion Buenrostro MD 03/25/2006 10:14 Reviewed by Gaby Sullivan MD 03/09/2006 15:49 Lala Sullivan, Era Sullivan, Quintin Buenrostro MD Dictated by: Gaby Sullivan MD Deion Buenrostro MD - Gaby Sullivan MD P - o4 Job ID: [id number] Document ID: [id number] cc: - MD Nate P - o4 Job ID: [id number] Document ID: [id number] cc: documented in this encounter Plan of Treatment Upcoming Encounters Date Type Department Care Team (Late st Contact Info) Description 07/12/2024 11:00 EDT Office Visit [facility] Endocrinology - [address] [address] Dana Lee, DO [address] [place] [phone] documented as of this encounter Visit Diagnoses Not on filedocumented in this encounter Care Teams Wheel And Axle Inspector Relationship Specialty Start Date End Date Madi Connell MD [address] [address] PCP - General 02/02/09 06/17/12 documented as of this encounter
--- OUTSIDE RECORDS SUMMARY | 2024-05-12 20:56 | XMS_ITS | Encounter Summary ---
Author Organization [facility] Address [address] [place] [address] Care Team Providers Care Short Range Air Defense Artillery Name Role Phone Brittani Gardiner MD Primary Care Provider [phone] Reason for Visit * Reason Comments Skin Exam spots on face, hx NM SC Encounter Details Date Type Department Care Team (Late st Contact Info) Description 08/20/2018 13:30 EDT Office Visit [facility] Dermatology 5th Floor [facility] [address] [place] [address] Hal Diamond MD [address] [place] [address] [address] [place] [address] History of nonmelanoma skin cancer (Primary Dx); Seborrheic keratoses, inflamed Discharge Disposition: Auto Discharge Social History Tobacco [...] 08/21/2017 13:49 EDT documented in this encounter Discharge Diagnoses Diagnosis Z85.828 Personal history of other malignant neoplasm of skin-Z85.828[ICD-10-CM] L82.0 Inflamed seborrheic keratosis-L82.0[ICD-10-CM] documented in this encounter Discharge Disposition Disposition Code Departure Means Destination Auto Discharge documented in this encounter Progress Notes * Talita Tracey - 08/20/2018 1330 EDT Review of Systems Constitutional: Negative for fatigue, fever and unexpected weight change. HENT: Negative for mouth sores. Eyes: Negative for pain. Respiratory: Negative for cough and shortness of breath. Cardiovascular: Negative for chest pain and palpitations. Gastrointestinal: Negative for abdominal pain, blood in stool, constipation, diarrhea, nausea and vomiting. Genitourinary: Negative for dysuria, frequency and hematuria. Musculoskeletal: Positive for joint swelling and arthralgias. Negative for myalgias and muscle stiffness in the morning. Skin: Negative for rash. Neurological: Negative for numbness and headaches. Endo/Heme/Allergies: Does not bruise/bleed easily. Psychiatric/Behavioral: Negative for sleep disturbance. The patient is not nervous/anxious. Talita Tracey 08/20/2018 13:13 * Odette Phillips MD - 08/20/2018 1330 EDT DIVISION OF DERMATOLOGY?? PROGRESS NOTE - 08/20/2018 ? Chief Complaint Patient presents with ??? Skin Exam spots on face, hx NMSC SUBJECTIVE:?? Ms. Aguilera has a history of skin cancer.?? She presents with the following new concerns in regards to her skin today: ?? She has a couple of lesions that get caught on her leg and mid back. For full Medical, Surgical, Family, and Social histories as well as Review of Systems, Medications and Allergies please see those sections of this encounter in the electronic chart which I have personally reviewed. OBJECTIVE: Complete cutaneous examination including the scalp, face, ears, neck, shoulders, axillae, upper extremities, hands, chest, abdomen, back, buttocks, lower extremities and feet is performed. All findings within normal limits unless otherwise noted below: ?? Scattered brown papules on L calf, thigh and mid back ASSESSMENT / PLAN: A: History of NMSC No evidence of recurrence. P: Patient was reassured Sunscreen and sun avoidance discussed Patient should perform regular self exam Regular followup as scheduled to detect new lesions Instruction given on what to look for in terms of worrisome lesions A: Inflamed seborrheic keratoses P: Treated with cryotherapy today CRYOSURGERY PROCEDURE NOTE PATIENT INFORMATION: Estela Aguilera [id number] 1945 DATE OF PROCEDURE: 08/20/2018 DEVELOPMENT SYSTEM EFFICIENCY MANAGER: Odette Phillips MD INDICATION(S): irritated seborrheic keratosis(es) LOCATION(S): left and back The indication, risks, benefits and alternatives to this procedure were discussed in detail with the patient and all questions were answered. A total of 3 lesion(s) on the above stated locations weredestroyed with liquid nitrogen cryosurgery. The expected reaction and healing course were discussed, as well as the possibility of incomplete resolution and/or permanent dyspigmentation. Verbal woundcare instructions were given. COMPLICATIONS: None NOTE: None Odette Phillips MD 08/20/2018 13:18 Attestation statement: I saw and examined the patient with the resident/fellow. I agree with the findings and plan of care documented in the resident's/fellow's note. I personally performed the procedure Hal Diamond MD Chief of Dermatology [facility] documented in this encounter Plan of Treatment Upcoming Encounters Date Type Department Care Team (Late st Contact Info) Description 07/12/2024 11:00 EDT Office Visit [facility] Endocrinology - [address] [address] Dana Lee, DO [address] [place] [phone] documented as of this encounter Visit Diagnoses Diagnosis History of nonmelanoma skin cancer- Primary Personal history of other malignant neoplasm of skin Seborrheic keratoses, inflamed documented in this encounter Historical Medications * This list may reflect changes made after this encounter. TURMERIC ORAL Take 500 mg by mouth. added in this encounter Care Teams [employer] Relationship Specialty Start Date End Date Brittani Gardiner MD [address] [place] [address] PCP - General 06/18/12 documented as of this encounter
--- OUTSIDE RECORDS SUMMARY | 2024-05-12 20:56 | XMS_ITS | Encounter Summary ---
Author Organization [facility] Address [address] [place] [address] Care Team Providers Care Compliance Manager Name Role Phone Brittani Gardiner MD Primary Care Provider +1- [phone] Reason for Visit * Reason Comments Skin Exam spot left cheek, lef t arm Encounter Details Date Type Department Care Team (Late st Contact Info) Description 09/02/2019 13:30 EDT Office Visit [facility] Dermatology 5th Floor [facility] [address] [place] [address] Hal Diamond MD [address] [place] [address] [place] [phone] Neoplasm of uncertain behavior of skin (Primary Dx); History of nonmelanoma skin cancer Social History Tobacco Use Types Packs/Day Years [...] 08/21/2017 13:49 EDT documented in this encounter Patient Instructions * Patient Instructions* Jonny Ventura MD - 09/02/2019 13:30 EDT WOUND CARE INSTRUCTIONS FOR SKIN BIOPSIES DRESSING/BANDAID: This should remain in place for 24 hours. You may shower or bathe after 24 hours.After the shower, remove the bandage, pat dry, and replace it with Vaseline/petroleum jelly and non-stick bandaging. DISCOMFORT: Tylenol (acetaminophen) or ibuprofen may be used for discomfort. Generally the pain should be mild. Take according to hand surgeon directions. BLEEDING: You may notice some blood on the edges of the dressing the first day and this is NORMAL. If the bleeding soaks through the dressing, hold solid pressure on the area with a wet wash cloth for 15 minutes. If the bleeding stops, put a new dressing on the site. If not, call our office at . ACTIVITY: You may resume normal activity in 1 day unless instructed otherwise. WOUND CARE: ?? Wash hands with soap and water before changing the dressing. ?? Change the dressing daily and when it becomes wet/dirty. Clean the wound daily with mild soap and water. You may gently loosen any crusts with a cotton swab. The wound may be slightly tender and may bleed a small amount. A small amount of discharge is normal. Apply a thin layer of sterile petroleum jelly/vaseline over the wound. Cover the wound with a non-stick dressing or bandage. It is important to keep the wound covered for 1 week. We do not recommend antibiotic ointment as many people will develop an allergic reaction. SUTURE REMOVAL: Please return to our clinic at your scheduled appointment for suture removal. You may also have your local doctors remove them at the scheduled time. CONTACT THE OFFICE IF YOU EXPERIENCE: ?? increased redness ?? warmth to touch ?? increased pain ?? drainage with a foul odor ?? rapid swelling of the wound ?? fever or chills It was a pleasure taking care of you today. Please call our office or if you have any concerns or questions. documented in this encounter Progress Notes * Jonny Ventura MD - 09/02/2019 0460 EDT DIVISION OF DERMATOLOGY PROGRESS NOTE - 09/02/2019 Chief Complaint Patient presents with ??? Skin Exam spot left cheek, left arm DERMATOLOGIC HISTORY: No specialty comments available. SUBJECTIVE: Ms. Aguilera has a history of NMSC. She presents with the following new concerns in regards to her skin today: ?? Left upper lip with pink spot that seems to have gotten slightly bigger. Not symptomatic. ?? New spot on left lower year that has been present for about a year. Also, asymptomatic. ?? No additional concerns. For full Medical, Surgical, Family, and Social histories as well as Review of Systems, Medications and Allergies please see those sections of this encounter in the electronic chart which I have personally reviewed. OBJECTIVE: The patient is a alert appearing 74 y.o.-year-old female sitting on the examination table. FEMALE COMPLETE SKIN EXAM EXCEPT BREASTS AND GENITALIA: Cutaneous examination including the head, neck, shoulders, axillae, upper extremities, hands, chest, abdomen, back, buttocks, lower extremities and feet is performed. Examination of the breasts and genitalia was offered but declined by the paitent today. All findings within normal limits unless otherwise noted below: ?? Examination of the lymph nodes was not performed today. ?? Left upper lateral lip: 3mm skin colored firm papule ?? Left lower eyelid: 3mm pearly pink papule ?? The remainder of the skin examined was normal. ASSESSMENT & PLAN: 1) History of NMSC ?? PREVENTION: The importance of sun avoidance, sun protection and regular self- skin examinations (watching for any new or changing skin lesions or ugly ducklings), for the prevention and detectionof new skin cancers reviewed. 2) Neoplasm of uncertain behavior, left upper lateral lip: favor nevus vs bcc ?? SKIN BIOPSY: Biopsy(s) of the lesion(s) recommended and performed as per the separate procedure note(s) below. Wound care reviewed. The patient to be notified of the final pathology results withinnext 7 to 10 days and additional treatment and follow up recommendations will be made as indicated at that time. 3) Cyst, left lower lid ?? Benign. Reassurance. PUNCH BIOPSY PROCEDURE NOTE PATIENT INFORMATION: Estela Aguilera Female, : 1945 SURGEON: Hal Diamond MD PUBLIC WORKS DIRECTOR: Jonny Ventura MD PROCEDURE: The indication, risks, benefits and alternatives to this procedure were discussed in detail in withthe patient and all questions were answered. Informed consent was obtained in writing. Using aseptic technique with alcohol prep and 1% lidocaine with epinephrine local anesthesia, a 3.5mm punch biopsy of the lesion(s) on the left lateral upper lip was performed to subcutis. The biopsy specimen was removed with a bishops and gradle scissors. Hemostasis was obtained by pressure and wound closure with a figure-eight 5.0 Fast absorbing plain gut surface suture. Sterile dressing applied, and wound care instructions reviewed. The specimen was labeled and sent to the lab for histopathologic evaluation. The patient will be notified of the biopsy results in approximately 7 to 10 days and appropriate treatment and follow up recommendations will be made at that time. The procedure waswell tolerated without complications. NOTE: None Return for follow up in 1 year, sooner as needed. Jonny Ventura MD 09/02/2019 13:31 Attestation statement: I saw and examined the patient with the resident/fellow. I agree with the findings and plan of care documented in the resident's/fellow's note. I personally performed the procedure Hal Diamond MD Chief of Dermatology [facility] documented in this encounter Plan of Treatment Upcoming Encounters Date Type Department Care Team (Late st Contact Info) Description 07/12/2024 11:00 EDT Office Visit [facility] Endocrinology - [address] [address] Dana Lee, DO [address] [place] [address] documented as of this encounter Procedures Procedure Name Priority Date/Time Associated Diagnosis Comments SURGICAL PATHOLOGY Routine 09/02/2019 13 :46 EDT Neoplasm of uncertain behavior of skin documented in this encounter Results * SURGICAL PATHOLOGY (09/02/2019 13:46 EDT) Final Diagnosis A. SKIN OF LIP, LEFT LATERAL UPPER, PUNCH BIOPSY: - Melanocytic nevus, intradermal type. 09/05/2019 15:08 [facility] at 1508 Attestation By the signature below, the attending physician certifies that they have 1) personally conducted a gross and/or microscopic examination of the described specimen(s), and/or personally interpreted the results of laboratory testing of the described specimen(s), and 2) personally rendered or confirmed the above diagnosis. 09/05/2019 15:08 [facility] at 1508 Clinical History Left upper lateral lip 4mm skin colored papule r/o nevus vs BCC 09/05/2019 15:08 [facility] Gross Description Received in formalin labelled with proper patient identification (initials W, R) and A. Left lateral upper lip is a punch biopsy of white centrally pale choe skin that measures 0.4 cm in diameter by 0.4 cm in thickness. Submitted intact in A1. Pasquale Franco 09/05/2019 7:32 09/05/2019 15:08 T [facility] Scanned Images 09/05/2019 15:08 [facility] Tissue ENTIRE LIP / Unknown Collection, Other / Unknown 09/02/2019 13:46 EDT 09/02/2019 17:13 EDT us Hal Diamond MD PATHOLOGY ORDERABLES Vianca perkins Result [facility] [address] [place] [address] documented in this encounter Visit Diagnoses Diagnosis Neoplasm of uncertain behavior of skin- Primary History of nonmelanoma skin cancer Personal history of other malignant neoplasm of skin documented in this encounter Care Teams Compliance Manager Relationship Specialty Start Date End Date Brittani Gardiner MD [facility] [employer] [address] [place] [address] PCP - General 06/18/12 documented as of this encounter
--- OUTSIDE RECORDS SUMMARY | 2024-05-12 20:56 | XMS_ITS | Encounter Summary ---
Author Organization [facility] Address [address] [place] [address] Care Team Providers Care Information Security Risk Analyst Name Role Phone Brittani Gardiner MD Primary Care Provider +1- [phone] Encounter Details Date Type Department Care Team (Late st Contact Info) Description 07/09/2023 Lab Requisition [facility] Pathology & Laboratory Medicine - [facility] [address] [place], [place] [id number] Outr Resulting Lab, Provider Social History Tobacco Use Types Packs/Day Years [...] 08/21/2017 13:49 EDT documented in this encounter Plan of Treatment Upcoming Encounters Date Type Department Care Team (Late st Contact Info) Description 07/12/2024 11:00 EDT Office Visit [facility] Endocrinology - [address] [place] [address] Dana Lee DO [address] [place] [address] documented as of this encounter Procedures Procedure Name Priority Date/Time Associated Diagnosis Comments VITAMIN D (25,OH) Routine 07/09/2023 16: 13 EDT documented in this encounter Results * (ABNORMAL) VITAMIN D (25,OH) (07/09/2023 16:13 EDT) 25OH Vitamin D Tot 25(L) 30 - 100 ng/mL 07/10/2023 10:[address] [facility] Comment: Vitamin D 25,OH Interpretive Ranges: Deficiency: ??<10.0 ng/mL Insufficiency: ??10.0 - 30.0 ng/mL Sufficiency: ??30.0 - 100.0 ng/mL Toxicity: ??>100.0 ng/mL Blood VENOUS BLOOD / Unknown 07/09/2023 16:13 EDT 07/09/2023 22:02 EDT us Provider Outr Resulting Lab CHEMISTRY & BLOOD GA S ORDERABLES Final Result [facility] [address] [place], [place] [address] documented in this encounter Visit Diagnoses Not on filedocumented in this encounter Care Teams Information Security Risk Analyst Relationship Specialty Start Date End Date Brittani Gardiner MD [address] [place] [address] PCP - General 06/18/12 documented as of this encounter
--- OUTSIDE RECORDS SUMMARY | 2024-05-12 20:56 | XMS_ITS | Encounter Summary ---
Author Organization [facility] Address [address] [place] [address] Care Team Providers Care Bologna Lacer Name Role Phone Brittani Gardiner MD Primary Care Provider +1- [phone] Reason for Visit * Reason Comments Skin Exam Encounter Details Date Type Department Care Team (Late st Contact Info) Description 08/01/2014 13:45 EDT Office Visit [facility] Dermatology 5th Floor [facility] [address] [place] [address] Hal Diamond MD [address] [place] [address] [place] [phone] Basal cell carcinoma of skin of other and unspecified parts of face (Primary Dx) Social History Tobacco Use Types [...] as of this encounter Discharge Diagnoses Diagnosis 173.31 BASAL CELL CARCINOMA OF SKIN OF OTHER AND UNSPECIFIED PARTS OF FACE[ICD-9-CM] documented in this encounter Progress Notes * Hal Diamond MD - 08/01/2014 1341 EDT S: History of basal cell carcinoma. Here for annual followup. She has a few sites on her leg that are crusty. She has a slight irritation on her forehead and would like followup on her arm surgery site. Past Medical History Diagnosis Date ??? Basal cell carcinoma 1999 left rastafari/forehead ??? Arthritis ??? Wears glasses ??? Back pain ??? Joint pain ??? Joint swelling ??? Osteoporosis O: Head to toe skin examination Left nose embedded in ala there is a morpheic papule Remainder of exam multiple seborrheic keratosis No recurrence left arm, but there is a scar Left forehead scar well-healed without recurrence A: New BCC, nose History of several BCC Seborrheic keratoses P: Sunscreen and sun avoidance discussed Patient should perform regular self exam Regular followup as scheduled to detect new lesions Instruction given on what to look for in terms of worrisome lesions Patient told to call us with any concerning lesions prior to next visit Frozen section biopsy followed by Mohs surgery for the left alar lesion This will be scheduled Hal Diamond MD Chief of Dermatology [facility] * Brandi Roca - 08/01/2014 1338 EDT Review of Systems Constitutional: Negative for fever, fatigue and unexpected weight change. HENT: Negative for mouth sores. Eyes: Negative for pain. Respiratory: Negative for cough and shortness of breath. Cardiovascular: Negative for chest pain and palpitations. Gastrointestinal: Negative for nausea, vomiting, abdominal pain, diarrhea, constipation and blood in stool. Genitourinary: Negative for dysuria, frequency and hematuria. Musculoskeletal: Positive for muscle stiffness in the morning. Negative for myalgias, joint swelling and arthralgias. Skin: Negative for rash. Neurological: Negative for numbness and headaches. Endo/Heme/Allergies: Does not bruise/bleed easily. Psychiatric/Behavioral: Negative for sleep disturbance. The patient is not nervous/anxious. Brandi Roca 08/01/2014 Hal Diamond MD Chief of Dermatology [facility] documented in this encounter Plan of Treatment Upcoming Encounters Date Type Department Care Team (Late st Contact Info) Description 07/12/2024 11:[address] [facility] Endocrinology - [address] [address] Dana Lee, [address] [place] [phone] documented as of this encounter Visit Diagnoses Diagnosis Basal cell carcinoma of skin of other and unspecified parts of face- Primary documented in this encounter Care Teams Bologna Lacer Relationship Specialty Start Date End Date Brittani Gardiner MD [address] [place] [address] [employer] [address] [place] [address] PCP - General 06/18/12 documented as of this encounter
--- OUTSIDE RECORDS SUMMARY | 2024-05-12 20:56 | XMS_ITS | Encounter Summary ---
Author Organization [facility] Address [address] [place] [address] Care Team Providers Care Engineer Assistant Name Role Phone Brittani Gardiner MD Primary Care Provider +1- [phone] Reason for Visit * Reason Onset Date Comments Appointment Related 11/10/2013 Encounter Details Date Type Department Care Team (Late st Contact Info) Description 11/10/2013 Telephone [facility] Dermatology 3rd Floor [facility] [address] [place] [address] Hal Diamond MD [address] [place] [address] [place] [phone] Appointment Related Social History Tobacco Use [...] on file documented as of this encounter Miscellaneous Notes * Telephone Encounter - Brandi Roca - 11/10/2013 1347 EDT Called patient and left message stating that I have cancelled her MOHS follow up in 05/14 and she can keep her skin check in 08/11 as a skin exam and MOHS follow up. Brandi Roca 11/10/2013 * Telephone Encounter - Michelle Regan - 11/10/2013 0815 EDT Patient has a six month follow up for Mohs in April. Patient has an appointment for a skin checkin July. Would be okay for her to wait until july for the mohs follow up. Please call. documented in this encounter Plan of Treatment Upcoming Encounters Date Type Department Care Team (Late st Contact Info) Description 07/12/2024 11:00 EDT Office Visit [facility] Endocrinology - [address] [address] Dana Lee DO [address] [place] [phone] documented as of this encounter Visit Diagnoses Not on filedocumented in this encounter Care Teams Engineer Assistant Relationship Specialty Start Date End Date Brittani Gardiner MD [address] [place] [address] [address] [place] [address] PCP - General 06/18/12 documented as of this encounter
--- OUTSIDE RECORDS SUMMARY | 2024-05-12 20:56 | XMS_ITS | Encounter Summary ---
Author Organization [facility] Address [address] [place] [address] Care Team Providers Care Public Records Researcher Name Role Phone Brittani Gardiner MD Primary Care Provider [phone] Reason for Visit * Reason Comments Follow-up Skin lesions, lesion s of concern on chest Encounter Details Date Type Department Care Team (Late st Contact Info) Description 09/04/2020 13:10 EDT Office Visit [facility] Dermatology 5th Floor [facility] [address] [place] [address] Hal Diamond MD [address] [place] [address] [place] [phone] Neoplasm of uncertain behavior of skin (Primary Dx); History of basal cell carcinoma; Seborrheic keratosis Social History Tobacco Use Types Packs/Day Years [...] this encounter Patient Instructions * Patient Instructions* Hal Diamond MD - 09/04/2020 13:10 EDT WOUND CARE INSTRUCTIONS FOR SKIN SURGERY (SUTURED OR OPEN WOUND) BANDAGE: Leave the bandage in place for 24 hours. You may shower or bathe after 24 hours. Remove the bandage and replace it after the showering (see below). DISCOMFORT: Expect discomfort. Take acetaminophen (for example, TylenolTM) as directed. If this does not provide sufficient relief, take ibuprofen (AdvilTM), up to 600 mg every 8 hours). You may takeboth of these together or alternate them. We do not routinely prescribe narcotic pain medications. If pain is severe and not relieved by the above measures, please call the office. BLEEDING: Some blood seeping into the bandage is NORMAL. If the bleeding soaks through the dressing, remove the dressing, and apply firm, steady pressure with a moist clean wash cloth for fifteen minutes. If the bleeding stops, redress the wound. If not, call our office. ACTIVITY: No strenuous activity for the first 48 hours after surgery. Keep your head elevated. APPEARANCE: Swelling and bruising are normal. Some redness is normal, but the wound should not be red, hot and tender. If the wound rapidly swells up or becomes increasingly inflamed, warm, or drainspus, please call our office. WOUND CARE: ?? Change the dressing daily and/or when it becomes wet. ?? Wash hands with soap and water and clean the wound with soap and warm water. ?? You may use 3% hydrogen peroxide and a cotton swab to loosen and remove the crusting from a wound with stitches. ?? Apply a thin layer of sterile petroleum jelly over the wound. ?? Cover with Telfa or similar non-stick dressing or bandage ?? Tape in place with Hypafix or paper tape ?? Mild tenderness, pinpoint bleeding and a thin mucous-like discharge are normal. ?? Keep all sutured wounds covered daily for a full 7 days. ?? Open wounds will need to be covered for much longer. ?? If you have sutures that require removal, you will receive specific instructions regarding when and where to have them removed. ?? If you have dissolving sutures they will fall apart and be gone in 10-14 days. OPEN WOUND HEALING (Wound without sutures): If your wound was left open to heal on its own, approximately one week after surgery a pink/red halo will form around the outside of the wound; this is newskin. The center of the wound will appear yellowish white and produce some drainage. The pink halo will slowly migrate toward the center of the wound until the wound is covered with new shiny pink skin. There will be a mucus-like drainage on the dressing and there will be no more drainage when the wound is completely healed. WHEN TO CONTACT YOUR PHYSICIAN: Contact you physician if your wound becomes increasingly sore, tender, red, or warm, or if the surgery site rapidly swells. Please call our office [phone] or if you have any questions or concerns. documented in this encounter Progress Notes * Mallorie Oreilly MA - 09/04/2020 1310 EDT Review of Systems Constitutional: Negative for fatigue, fever and unexpected weight change. HENT: Negative for mouth sores. Eyes: Negative for pain. Respiratory: Negative for cough and shortness of breath. Cardiovascular: Negative for chest pain and palpitations. Gastrointestinal: Negative for abdominal pain, blood in stool, constipation, diarrhea, nausea and vomiting. Genitourinary: Negative for dysuria, frequency and hematuria. Musculoskeletal: Negative for myalgias, joint swelling, arthralgias and muscle stiffness in the morning. Skin: Negative for rash. Neurological: Negative for numbness and headaches. Endo/Heme/Allergies: Does not bruise/bleed easily. Psychiatric/Behavioral: Negative for sleep disturbance. The patient is not nervous/anxious. MALLORIE OREILLY MA 09/04/2020 13:08 Patient Education Topic: Wound Care Method: Handout and Verbal Taught to: Patient Barriers: None Outcomes: independent and verbalized understanding Signature:MALLORIE OREILLY MA 09/04/2020 13:33 * Hal Diamond MD - 09/04/2020 1310 EDT Images from the original note were not included. S: Followup for history of BCC. Well-healed. Has several spots to be evaluated. None are bleeding. Past Medical History: Diagnosis Date ??? Arthritis ??? Back pain ??? Basal cell carcinoma 1998 left jainism/forehead ??? Basal cell carcinoma 09/2014 left nasal ala, s/p mohs ??? Joint pain ??? Joint swelling ??? Osteoporosis ??? Wears glasses O: Prior scars well-healed No recurrence Scattered and diffuse seborrheic keratosis and angiomas Left forearm 3 mm dark brown/black papule that on dermoscopy is arising in a pigment network Too dark to examine easily A: History of BCC Multiple seborrheic keratosis Dark lesion of arm P: Sunscreen and sun avoidance discussed Patient should perform regular self exam Regular followup as scheduled to detect new lesions Instruction given on what to look for in terms of worrisome lesions Patient told to call us with any concerning lesions prior to next visit P: SHAVE BIOPSY PATIENT INFORMATION: Estela Aguilera : MRN: [id number] SURGEON: Dara Diamond MD Chief of Dermatology [facility] The indication, risks, benefits and alternatives to [...] was submitted to pathology for histological evaluation. documented in this encounter Miscellaneous Notes * Addendum Note - Brody Melgoza MD - 09/04/2020 1310 EDTAddended by: BRODY MELGOZA on: 09/04/2020 15:37 Modules accepted: Orders documented in this encounter Plan of Treatment Upcoming Encounters Date Type Department Care Team (Late st Contact Info) Description 07/12/2024 11:00 EDT Office Visit [facility] Endocrinology - [facility] [address] [place] [address] Dana Lee DO [address] [place] [phone] documented as of this encounter Procedures Procedure Name Priority Date/Time Associated Diagnosis Comments SURGICAL PATHOLOGY Routine 09/04/2020 16 :12 EDT Neoplasm of uncertain behavior of skin documented in this encounter Results * SURGICAL PATHOLOGY (09/04/2020 16:12 EDT) Final Diagnosis A. SKIN OF FOREARM, LEFT, SHAVE BIOPSY: - Blue nevus, involving the biopsy base. 09/05/2020 15:27 T [facility] Attestation By the signature below, the attending physician certifies that they have 1) personally conducted a gross and/or microscopic examination of the described specimen(s), and/or personally interpreted the results of laboratory testing of the described specimen(s), and 2) personally rendered or confirmed the above diagnosis. 09/05/2020 15:27 T [facility] at 1527 Clinical History Blue dermal appearing lesion; favor blue nevus; R/O melanoma; clinical diagnosis code: D48.5 09/05/2020 15:27 T [facility] Gross Description A. Received in formalin labelled with proper patient identification (initials W, R) and left forearm is a shave biopsy of white skin (0.4 x 0.4 x 0.1 cm). There is a blue-ventura macule (0.2 x 0.1 cm) present. The margin is inked blue. The tissue is bisected and entirely submitted in A1. PILO GRAYSON(ASCP) 09/05/2020 8:12 09/05/2020 15:27 EDT [facility] Performing Lab [facility] 09/05/2020 15:27 EDT [facility] Scanned Images 09/05/2020 15:27 EDT [facility] Tissue TISSUE SPECIMEN FROM SKIN / Unknown Collection, Other / Unknown 09/04/2020 16:12 EDT 09/04/2020 21:08 EDT us Hal Diamond MD PATHOLOGY ORDERABLES Vianca perkins Result [facility] [address] [place] [address] documented in this encounter Visit Diagnoses Diagnosis Neoplasm of uncertain behavior of skin- Primary History of basal cell carcinoma Personal history of other malignant neoplasm of skin Seborrheic keratosis Other seborrheic keratosis documented in this encounter Care Teams Public Records Researcher Relationship Specialty Start Date End Date Brittani Gardiner MD [address] [place] [address] PCP - General 06/18/12 documented as of this encounter
--- OUTSIDE RECORDS SUMMARY | 2024-05-12 20:56 | XMS_ITS | Encounter Summary ---
Author Organization [facility] Address [address] [place] [address] Care Team Providers Care Clamper Name Role Phone Tree Daniels MD Primary Care Provider [phone] Encounter Details Date Type Department Care Team (Late st Contact Info) Description 02/23/2007 Results Only [facility] - Maple conversion [address] [place] [address] Tree Daniels MD [address] [id number] Social History Tobacco Use Types Packs/Day Years [...] Info) Description 07/12/2024 11:00 EDT Office Visit [facility] Endocrinology - [address] [address] Dana Lee, [address] [place] [phone] documented as of this encounter Procedures Procedure Name Priority Date/Time Associated Diagnosis Comments VITAMIN B12 Routine 02/23/2007 11:26 EST CYTOPATHOLOGY Routine 02/23/2007 0:00 EST documented in this encounter Results * VITAMIN B12 (02/23/2007 11:26 EST) Vitamin B-12 663 250 - 1100 pg/ml SRINI SALAZAR 02/23/2007 11:2 6 EST 02/23/2007 20:48 EST us Provider Unknown CHEMISTRY & BLOOD GAS ORDERA BLES Final Result SRINI SALAZAR [address] [place] [address] * CYTOPATHOLOGY (02/23/2007 0:00 EST) Pathologist [facility] Pathology Report: CYTOPATHOLOGY REPORT Reports generated via electronic interface contain original data; however they are lacking the format of the original report. Caution should be taken when reading/interpreti ng unformatted reports. Name: ? NEREYDA AGUILERA ? Accession #: ? [id number] : ? 1945 (Age: 61) ??F ?Collect Date: ? 02/23/2007 Location: ? [facility] ? Receive Date: ? 02/25/2007 Provider: ?TREE DANIELS MD Copy to: ? Specimen/Source: ?ThinPrep Pap Test, Vagina/Cervix, processed on [employer] ThinPrep Imaging System, with manual evaluation Last Menstrual Period: ? Menstrual/Pregnanc y Status: ? Menopausal Other: ? HPVA - HPV testing requested if ASC-US on the current ThinPrep Pap test.: R/O Cancer ? SPECIMEN ADEQUACY ? Satisfactory for Evaluation - assessment of transformation zone component not applicable ( e.g. atrophy, vaginal sample, hysterectomy) GENERAL CATEGORIZATION ? Negative for Intraepithelial Lesion or Malignancy ? Document reviewed and electronically signed by: ? JANIYA Plaza(ASCP) ? Report Date: ??02/26/2007 16:28 End of Report SRINI SALAZAR 02/23/2007 02/25/2007 us Tree Daniels MD PATHOLOGY ORDERABLES Final R esult Performing Organization Address City/State/[facility] Co de Phone Number SRINI SALAZAR [address] [place] [address] documented in this encounter Visit Diagnoses Not on filedocumented in this encounter Care Teams Clamper Relationship Specialty Start Date End Date Tree Daniels MD [address] [address] PCP - General 02/02/09 06/17/12 documented as of this encounter
--- OUTSIDE RECORDS SUMMARY | 2024-05-12 20:56 | XMS_ITS | Encounter Summary ---
Author Organization [facility] Address [address] [place] [address] Care Team Providers Care Forestry Faculty Member Name Role Phone Brittani Gardiner MD Primary Care Provider [phone] Encounter Details Date Type Department Care Team (Late st Contact Info) Description 07/09/2023 Lab Requisition [facility] Pathology & Laboratory Medicine - [facility] [address] [place], [place] [address] Outr Resulting Lab, Provider Social History Tobacco [...] Info) Description 07/12/2024 11:00 EDT Office Visit [facility] Endocrinology - [address] [place] [address] Dana Lee DO [address] [place] [phone] documented as of this encounter Procedures Procedure Name Priority Date/Time Associated Diagnosis Comments PTH INTACT Routine 07/09/2023 16:13 EDT documented in this encounter Results * PTH INTACT (07/09/2023 16:13 EDT) Intact PTH 63 19 - 88 pg/mL 07/09/2023 23:02 EDT [facility] Blood VENOUS BLOOD / Unknown 07/09/2023 16:13 EDT 07/09/2023 22:02 EDT us Provider Outr Resulting Lab CHEMISTRY & BLOOD GA S ORDERABLES Final Result [facility] [address] [place] [address] documented in this encounter Visit Diagnoses Not on filedocumented in this encounter Care Teams Forestry Faculty Member Relationship Specialty Start Date End Date Brittani Gardiner MD [address] [place] [address] PCP - General 06/18/12 documented as of this encounter
--- OUTSIDE RECORDS SUMMARY | 2024-05-12 20:56 | XMS_ITS | Encounter Summary ---
Author Organization [facility] Address [address] [place] [address] Care Team Providers Care Manager Summer Name Role Phone Madi Connell MD Primary Care Provider [phone] Reason for Visit * Reason Comments Follow-up Skin Check Encounter Details Date Type Department Care Team (Latest Contact Info) Description 02/04/2010 11:00 EST Office Visit [facility] Dermatology [address] [facility] [address] [place], [place] [phone] Jonas Cox MD [address] [place] [phone] History of basal cell carcinoma (Primary Dx); Actinic keratosis; Hemangioma of skin and subcutaneous tissue Social History Tobacco Use Types Packs/Day Years Used Date Smoking Tobacco: Never Alcohol Use Standard Drinks/Week Comments No 0 (1 standard drink = 0.6 oz pur e alcohol) Comments Unknown Sex and Gender Information Value Date Recorded Sex Assigned at Not on file Legal Sex Female 18:35 EST Gender Identity Not on file Sexual Orientation Not on file documented as of this encounter Patient Instructions * Patient Instructions* Wesley Leblanc - 02/04/2010 11:40 EST DERMATOLOGY - WOUND CARE INSTRUCTIONS The DRESSING/BANDAID should remain in place for 24 hours. If the dressing comes loose before then, re-tape it carefully or change the bandage. You may shower after 24 hours; remove the bandage and replace it after the shower. Do not let the forceful stream of the shower hit your wound directly. If you bathe in a tub, the bath should be brief. DISCOMFORT: Postoperative pain is usually minimal. Extra-Strength Tylenol, two tablets every four hours, usually relives any pain you may have. Do not take Ibuprofen (Motrin, Advil), Naprosyn (Aleve), and Aspirin or aspirin- containing products as they increase the chance of bleeding for 5 days after your surgery , unless approved by your provider. BLEEDING: Attention has been given to your wound to prevent bleeding. You may notice a small amountof blood on the edges of the dressing the first day and this is NORMAL. Keep your head elevated for48 hours if the surgery was on the face or scalp. If the bleeding seems persistent and soils the dressing, apply firm, steady pressure over the dressing with gauze or a wash cloth for fifteen minutes. This is usually adequate treatment. If bleeding persists, call our office at or go to the nearest Walk in Clinic or Emergency Room. ACTIVITY: Relax and limit your physical activity for the first 48 hours after the procedure. Physical activity should also be limited if the excision included the shoulder, upper arm, and/or legs forthe next 7-10 days. WOUND CARE: ?? Wash hands with soap and water before changing the dressing. ?? Change the dressing daily and when it becomes wet The suture line should be cleansed daily with tap water. You may gently loosen any crusts with a cotton swab. Pat dry. The first day the wound may be tender and may bleed slightly or ooze a small amount clear fluid. For stubborn crusting, place a wet cloth over the wound for five minutes to soak and loosen crusts. Apply a thin layer of Vaseline over the wound. It is not recommended to use triple antibiotic ointment or other ointments as they can cause allergic reactions and do not prevent infection. Cover the wound with a Telfa (non-stick) dressing or gauze pad and a piece of paper tape. It is important to keep the wound covered. If you have sutures; the provider will inform you as to when the sutures need removed. Generally this is between 7-14 days depending on the area of the wound. If you had Liquid Nitrogen Therapy, the area may swell, form blisters and throb for 24 hours. The scabs that form should fall off within 14-21 days. It is normal to see blood in the blisters. If the blisters open, apply Vaseline until the area has healed. APPEARANCE: There may be swelling and bruising around the wound, especially near the eyes. For yourcomfort, you may apply warm, moist soaks to the bruises a few times a day, starting the third day after the procedure. You may also experience itching or ???pulling?? sensations around the wound as it heals. Healing time depends on the size, depth are of the wound. If you have concerns please callour office. If the procedure requires sutures, the suture line will be dark pink at first and the edges of the wound will be reddened. This will lighten up day by day and will be less tender. CONTACT THE OFFICE: ?? If the wound becomes increasingly red, warm to touch, increased pain, drainage with a foul odor,rapid swelling of the wound and/or if you develop a fever or chills, please call our office immediately or . ?? documented in this encounter Progress Notes * Christel Miranda - 02/04/2010 1130 EST A complete 12 point review of systems was obtained and reviewed. All systems are negative except for: Urgency, joint pain or swelling Christel Miranda 11:30 02/04/2010 WESLEY LEBLANC MD 02/04/2010 11:30 * Wesley Leblanc - 02/04/2010 1129 EST DERMATOLOGY OUTPATIENT CLINIC NOTE Chief Complaint Patient presents with ??? Follow-up Skin Check Patient Active Problem List Diagnoses Code ??? History of basal cell carcinoma V10.83E Subjective Patient here for follow up due to history of BCC on the quaker. At her last visit, there was a scaly area noted on the right cheek, this was thought to be a benign keratosis. She notes that it is still present and rough to the touch. She does not feel it has gotten thicker or larger. It has never bled. No other concerns today. Patient has had no interval health status change. No constitutional symptoms today or any other complaints referable to the skin. I have personally reviewed the Medical and Surgical histories, Review of Systems, Medications and Allergies, please see those sections of this encounter in the electronic chart. Objective There were no vitals taken for this visit. Well appearing female in no acute distress. Examination included the four extrem, abd, chest, back,neck, face, scalp. Findings included the following: Left quaker well healed without nodularity or recurrence. Right cheek shows an oblong well demarcated pink choe gritty papule. Scattered over the trunk she has many dome shaped sinha red papules. The remainder of the examination is unremarkable. Assessment 1. History of basal cell carcinoma, no evidence of recurrence 2. Actinic keratosis right cheek 3. Sinha angiomas Plan 1. Recommend cryotherapy of the AK on the cheek, she agreed. Liquid nitrogen cryotherapy was applied to a total of 1 lesions on the right cheek. The expected reaction and healing course were discussed, as well as the possibility of incomplete resolution and/or permanent dyspigmentation. Dr. Cox was present for the entire procedure. 2. Reassurance given regarding the remainder of their skin exam today. 3. F/u one year for skin check WESLEY LEBLANC MD 02/04/2010 11:28 Attestation statement: I saw and examined the patient with the resident/fellow. I agree with the findings and plan of care documented in the resident's/fellow's note. I was present for the entire procedure. JONAS COX MD 02/04/2010 17:11 documented in this encounter Plan of Treatment Upcoming Encounters Date Type Department Care Team (Late st Contact Info) Description 07/12/2024 11:00 EDT Office Visit [facility] Endocrinology - [address] [phone] Dana Lee DO [address] [place] [phone] documented as of this encounter Visit Diagnoses Diagnosis History of basal cell carcinoma- Primary Personal history of other malignant neoplasm of skin Actinic keratosis Hemangioma of skin and subcutaneous tissue documented in this encounter Care Teams Manager Summer Relationship Specialty Start Date End Date Madi Connell MD [address] [address] PCP - General 02/02/09 06/17/12 documented as of this encounter
--- OUTSIDE RECORDS SUMMARY | 2024-05-12 20:56 | XMS_ITS | Encounter Summary ---
Author Organization [facility] Address [address] [place] [address] Care Team Providers Care Consumer Relations Specialist Name Role Phone Brittani Gardiner MD Primary Care Provider [phone]- [phone] Reason for Visit * Reason Comments Basal Cell Carcinoma Left nasal alar Encounter Details Date Type Department Care Team (Late st Contact Info) Description 10/04/2014 8:15 EDT Office Visit [facility] Dermatology 5th Floor [facility] [address] [place] [address] Hal Diamond MD [address] [place] [address] [place] [phone] Basal cell carcinoma of nose (Primary Dx) Social History Tobacco Use Types [...] on file documented as of this encounter Last Filed Vital Signs Vital Sign Reading Time Taken Comments Blood Pressure 137/78 10/04/2014821 EDT Pulse 61 10/04/2014 08 EDT Temperature 36.1 ??C (97 ??F) 10/04/2014 0822 EDT Respiratory Rate - - Oxygen Saturation - - Inhaled Oxygen Concentration - - Weight - - Height - - Body Mass Index - - documented in this encounter Functional Status * Because of [...] 10/04/2014 8:20 EDT documented in this encounter Discharge Diagnoses Diagnosis 173.31 BASAL CELL CARCINOMA OF SKIN OF OTHER AND UNSPECIFIED PARTS OF FACE[ICD-9-CM] documented in this encounter Patient Instructions * Patient Instructions* Maria De Jesus Stafford MD - 10/04/2014 8:39 EDT WOUND CARE INSTRUCTIONS FOR SKIN SURGERY The BANDAGE should remain in place for 24 hours. You may shower after 24 hours; remove the bandage and replace it after the shower (see wound care section). DISCOMFORT: Expect some discomfort. Extra-Strength Tylenol, taken as directed by the barrel burner, will help relieve pain. If Tylenol does not provide relief, you may alternate with ibuprofen. If thepain is severe please call the office. BLEEDING: You may notice some blood on the edges of the dressing the first day - this is NORMAL. Ifthe bleeding soaks through the dressing, remove the dressing, and apply firm, steady pressure with a moist clean wash cloth for fifteen minutes. If the bleeding stops, redress the wound, if not, callour office at . ACTIVITY: Relax and limit your physical activity for the first 48 hours after surgery. Your provider may ask you to limit activity for a longer period of time. If the surgery was on the face or scalp, keep your head elevated. APPEARANCE: There may be swelling and bruising around the wound. Some redness is normal, but the wound should not be red, hot and tender. If the wound becomes increasingly inflamed, warm, or drains pus, please call our office. With surgery on the nose, eyelids, forehead, or scalp your eyes may become swollen and bruised. WOUND CARE: ?? Change the dressing daily and when it becomes wet. ?? Wash hands with soap and water before changing the dressing. ?? Clean the wound with mild soap and warm water. ?? You may gently loosen any crusts with a cotton swab. ?? The wound may be slightly tender and may bleed a small amount. A small amount of discharge is normal. ?? Apply a thin layer of sterile petroleum jelly over the wound. ?? Cover with Telfa or similar non-stick dressing or bandage. ?? Tape in place with Hypafix or paper tape. ?? It is important to keep the wound covered for 7 days at which point the dressing may be removed and does not need to be reapplied. However, if there are areas that are not fully healed, the dressing should remain in place until the skin has healed completely. ?? If your sutures require removal, you will receive specific instructions regarding when and whereto have them removed; Continue daily dressings until the sutures are removed. Dissolvable sutures generally fall out in 7 to 14 days. If there are suture remnants still present after 7 days you may pull them out with tweezers. Please CALL OUR OFFICE IF YOU EXPERIENCE: or ?? Increasing redness ?? Wound is warm or hot to touch ?? Increasing pain ?? Drainage with a foul odor ?? Rapid swelling of the wound ?? Fever or chills documented in this encounter Ordered Prescriptions Prescription Sig Dispense Quantity Refills Last Filled Start Date End Date cephALEXin (KEFLEX) 500 mg capsule Take 1 Cap by mouth 3 times daily for 5 days 15 Each 0 10/04/2014 10/09/2014 documented in this encounter Progress Notes * Maria De Jesus Stafford MD - 10/04/2014 0830 EDT Images from the original note were not included. MOHS SURGERY POST-OP SUMMARY Estela Aguilera is a 69 y.o. year old female who underwent Mohs surgery today 10/04/2014. The following is a summary of the operative findings: Lesion 1 basal cell carcinoma Location left nasal ala Size Preop (cm) 0.4 x 0.3 cm Size Postop (cm) 0.8 x 0.7 cm Stages 2 Depth of Excision muscle Repair rotation flap Ms. Aguilera was discharged from the operative suite in good condition. She was carefully instructed in postoperative wound care both verbally and in writing. Note: Keflex given for prophylaxis. Maria De Jesus Stafford MD 10/04/2014 8:30 Attestation statement: I saw and examined the patient with the resident/fellow. I agree with the findings and plan of care documented in the resident's/fellow's note. Hal Diamond MD Chief of Dermatology * Maria De Jesus Stafford MD - 10/04/2014 0828 EDT MOHS EVALUATION NOTE Chief Complaint Patient presents with ??? Basal Cell Carcinoma Left nasal alar Subjective: Estela Aguilera is a 69 y.o. year old female who is referred to me for evaluation and treatment of alikely basal cell carcinoma of the left nasal ala by Dr. Dara MD. The patient is referred to consider Mohs surgery versus other treatment options. The patient notes that this lesion has been present for a few months, and reports no symptoms. The patient???s risk factors for skin cancer include history of basal cell carcinoma. Risk factors: Pacemaker/ICD: None Anticoagulants: None Total joint replacements/valves: None Allergies: Patient has No Known Allergies. Immunosuppression: None For full Medical, Surgical, Family, and Social histories as well as Review of Systems, Medications and Allergies please see those sections of this encounter in the electronic chart which I have personally reviewed. Objective: Complete physical examination of the affected area in the office today revealed a 0.4 cm x 0.3 cm pearly, papule located on the left nasal ala. Careful examination of the draining lymph nodes revealed no suspicious adenopathy. Pathology: Frozen biopsy today Assessment: - lesion concerning for BCC Plan: Ms. Aguilera and I discussed the meaning of the diagnosis of skin cancer and the options for treatment including curettage and electrodesiccation, radiation therapy, conventional excision, and excisionby Mohs micrographic surgery. Due to the need for a high cure rate and optimum functional and aesthetic outcome, I feel that Mohs surgery is indicated. The risks of Mohs surgery and potential reconstructive surgery, including but not limited to, bleeding, scarring, infection, recurrence, injury to functionally or cosmetically important nerve structures and an unsatisfactory cosmetic result were reviewed. The patient was given an opportunity to ask questions, and I believe that all of her questions were answered satisfactorily. In addition the patient was provided with written material that describes the Mohs procedure and related matters. Ms. Aguilera understands that following Mohs surgery an operative repair may be required and may involve substantial suturing. We have jointly planned to have me repair the wound at the day of surgery.She understands that following reconstruction, if performed, many months may elapse before a decision can be made about the final cosmetic result, and that, in some cases a revision may be necessary to optimize the outcome. I explained to Ms. Aguilera that in addition to the risk of recurrence from her skin cancer she has an increased risk of developing additional new skin cancers elsewhere. For that reason, follow up for ongoing skin surveillance examinations, after surgery, will be imperative. The patient has been scheduled to undergo surgery today. Note: None Maria De Jesus Stafford MD 10/04/2014 8:28 Attestation statement: I saw and examined the patient with the resident/fellow. I agree with the findings and plan of care documented in the resident's/fellow's note. Hal Diamond MD Chief of Dermatology SHAVE BIOPSY PROCEDURE NOTE PATIENT INFORMATION: Estela Aguilera [id number] DATE OF PROCEDURE: 10/04/2014 SURGEON: Hal Diamond MD I personally performed the procedure AIR HOIST OPERATOR: Maria De Jesus Stafford MD The indication, risks, benefits and alternatives to this procedure were discussed in detail with the patient and all questions were answered. Informed consent was obtained in writing. The patient was placed in the supine position on the operating table. Using aseptic technique with alcohol prep, the lesion(s) on the left nasal ala was/were locally anesthetized with 1% lidocaine with epinephrine. The specimen(s) was/were removed by tangential shave using a dermablade. Hemostasis was achieved with spot electrocoagulation. A sterile dressing was applied over petrolatum ointment. The specimen(s) was/were submitted for histopathologic evaluation by frozen section. Note: None Dermatologic Surgery FROZEN SECTION BIOPSY REPORT . PATIENT INFORMATION: Estela Aguilera : MRN: [id number] PROVIDER: Hal Diamond MD I personally performed the procedure DETAILS: Specimen A Location: left nasal ala Final pathology diagnosis and microscopic description: Micronodular basal cell carcinoma -- Arisingfrom the epidermis are nodules of basaloid keratinocytes with a fibromyxoid stroma, peripheral palisading, and areas of cleft artifact. In areas the tumor breaks up into a small, micronodular, infiltrative growth pattern with deeper extension into the dermis. Specimen received: Shave Biopsy Clinical history: Pearly papule Gross description: Received as fresh tissue as a small oriented biopsy of skin. The specimen was transected and submitted for frozen section biopsy. MOHS OPERATIVE REPORT Patient Name: Estela Aguilera Date of Service: October 04, 2014 Surgeon: Hal Diamond MD I personally performed the procedure Java Core Developer: Maria De Jesus Stafford MD Case #: [id number] Preoperative Diagnosis: micronodular basal cell carcinoma Preoperative Procedure: Mohs micrographic surgery Location of Lesion: left nasal ala Preoperative Lesion Size: 0.4 cm x 0.3 cm Preoperative Procedure: Mohs microscopically-controlled fresh tissue excision Indications: The patient presents with a basal cell carcinoma. Because of the histologic and clinical nature of the lesion, as well as its location, the need to achieve the highest cure rate while providing maximum tissue preservation warranted tumor extirpation via microscopically-controlled excision using the Mohs fresh tissue technique. Alternate therapeutic options were discussed on several occasions prior to surgery. After informed consent was obtained and appropriate instruction was provided, the patient underwent tumor extirpation by the Mohs fresh tissue technique as follows: PROCEDURE - INITIAL STAGE: Patient position: supine Anesthesia: 1% lidocaine with epinephrine 1:100,000 local infiltration Prep: Povodine Iodine The patient was brought to the operative suite. The lesion was identified and was prepped in a sterile fashion. The area was infiltrated with lidocaine/epinephrine to achieve complete anesthesia and to augment hemostasis. An initial beveled excision was performed to the fibrofatty tissue with a scal pel blade and tissue scissors as indicated. A hash was created in the specimen and within the adjacent epidermis for marking purposes. The Mohs specimen was excised in a sharp manner, and carefully placed in proper orientation on the surgical tray. Hemostasis of the operative wound was obtained with careful spot electrocoagulation. A sterile non-adherent dressing was applied to the operative wound. The Mohs tissue specimen was carefully transferred to the lab where the tissue was divided, and color inked for orientation by me. These specimens were mapped and then handed personally to the insulator technician for frozen sectioning. The tissue was embedded so that the deep and surface margins lay in the same plane, and sections were made through this plane. Once the slide preparation was complete I personally performed histologic evaluation and interpretation of all sections. A summary of my findingsmay be found below. Stage 1 findings: Wound Depth fibrofatty tissue Sections Created 2 Number of Sections Containing Tumor 1 (Micronodular basal cell carcinoma -- Arising from the epidermis are nodules of basaloid keratinocytes with a fibromyxoid stroma, peripheral palisading, and areas of cleft artifact. In areas the tumor breaks up into a small, micronodular, infiltrative growth pattern with deeper extension into the dermis.) ADDITIONAL STAGES: The operative site was reidentified and anesthesia was supplemented with further lidocaine/epinephrine as needed. Further beveled incisions of lateral and deep margins were performed with a number 15scalpel blade at all sites where tumor was mapped from the previous stage. Hashes were created in the specimen and within the adjacent epidermis for marking purposes as indicated. The Mohs specimens were excised in a sharp manner, and carefully placed in proper orientation on the surgical tray. Hemostasis of the operative wound was obtained with careful spot electrocoagulation. A sterile non-adherent dressing was applied to the operative wound. Stage 2 findings: Wound Depth muscle Sections Created 1 Number of Sections Containing Tumor 0 With the patient clear of microscopic tumor, surgery was considered complete. Postoperative Wound Size: 0.8 x 0.7 cm Final Diagnosis: basal cell carcinoma Final Procedure: Mohs micrographic surgery Blood Loss: Minimal Operative Time: 90 minutes Complications: None Note: None Maria De Jesus Stafford MD 10/04/2014 8:28 Dermatology Flap Repair Patient Information: Estela Aguilera : MRN: [id number] Surgeon: Hal Diamond MD Java Core Developer: Maria De Jesus Stafford MD I personally performed the procedure Hal Diamond MD Chief of Dermatology Preoperative Diagnosis: Basal cell carcinoma Preoperative Procedure: Adjacent Tissue Transfer Location(s): left inferior, lateral nose and nasal ala Wound Dimensions: 0.8 cm x 0.7 cm INDICATIONS: The patient presents with an operative wound following tumor removal. After careful consideration and discussion of all repair options, it was determined that, given the location and nature of the defect, an adjacent tissue transfer offered the best chance for preservation of normal anatomic and functional relationships. Alternate options were discussed and the patient was encouraged to ask questions, which, I believe, were answered appropriately. Informed consent was obtained in writing. Afterinformed consent was obtained and appropriate instruction was provided, the patient underwent operative repair as follows. PROCEDURE: Patient position: supine Anesthesia: 1% lidocaine with epinephrine 1:100,000 local infiltration Prep: Povodine Iodine The Mohs operative defect was identified, and the area was infiltrated with lidocaine/epinephrine to achieve complete anesthesia and to augment hemostasis. The area was prepped in the usual sterile fashion and was draped with sterile drapes. A unilateral rotation flap was drawn on the skin with a sterile marking pen using care to place incisions within functional and cosmetic lines to minimize the postoperative distortion of normal tissues. The wound edges were prepared using a # 15 scalpel blade to precisely delineate the operative repair and were then extensively undermined with combined blunt and, as needed, sharp dissection taking great care to avoid functionally important vessels and nerves. Undermining was carried out at the level of the muscle Hemostasis of the operative wound was obtained with careful spot electrocoagulation, and ligature as indicated. The wound edges were then approximated using 5.0 Monocryl (poliglecaprone 25) buried interrupted sutures at the level of the subcutis and dermis. The epidermis was then approximated using 6.0 Prolene (polypropylene). Final Diagnosis: Defect following microscopically controlled excision Final Procedure: Adjacent Tissue Transfer Flap Area / Size: 4.0 cm2 Blood loss: minimal Operative time: 60 minutes Complications: None NOTE: None * Missy Keenan - 10/04/2014 0822 EDT Patient Education Topic: Wound Care Method: Demonstration, Handout and Verbal Taught to: Patient Barriers: None Outcomes: independent Signature: Missy Keenan 10/04/2014 8:22 documented in this encounter Plan of Treatment Upcoming Encounters Date Type Department Care Team (Late st Contact Info) Description 07/12/2024 11:00 EDT Office Visit [facility] [place] [address] [place] [address] Dana Lee, [address] [place] [phone] documented as of this encounter Visit Diagnoses Diagnosis Basal cell carcinoma of nose- Primary Basal cell carcinoma of skin of other and unspecified parts of face documented in this encounter Care Teams Consumer Relations Specialist Relationship Specialty Start Date End Date Brittani Gardiner MD [address] [place] [address] PCP - General 06/18/12 documented as of this encounter
--- OUTSIDE RECORDS SUMMARY | 2024-05-12 20:56 | XMS_ITS | Encounter Summary ---
Author Organization [facility] Address [address] [place] [address] Care Team Providers Care Director Behavioral Health Name Role Phone Brittani Gardiner MD Primary Care Provider [phone]- [phone] Reason for Visit * Reason Comments Skin Exam Encounter Details Date Type Department Care Team (Late st Contact Info) Description 08/14/2015 8:30 EDT Office Visit [facility] Dermatology 5th Floor [facility] [address] [place] [address] Hal Diamond MD [address] [place] [address] [place] [phone] History of basal cell carcinoma (Primary Dx) Social History Tobacco Use Types [...] documented in this encounter Discharge Diagnoses Diagnosis Z85.820 Personal history of malignant melanoma of skin-Z85.820[ICD-10-CM] L82.1 Other seborrheic keratosis-L82.1[ICD-10-CM] documented in this encounter Progress Notes * Hal Diamond MD - 08/14/2015 0827 EDT S: Followup on multiple BCC No major concerns today Notes a few small areas which may require attention Past Medical History Diagnosis Date ??? Arthritis ??? Wears glasses ??? Back pain ??? Joint pain ??? Joint swelling ??? Osteoporosis ??? Basal cell carcinoma 1998 left [facility]ist/forehead ??? Basal cell carcinoma 09/2014 left nasal ala, s/p mohs O: Complete physical exam of the skin reveals no lesions suspicious for melanoma, basal cell carcinoma, or squamous cell carcinoma. Multiple seborrheic keratosis, goodwin angiomas and lentigos Prior scars are well healed Mild bilateral hand dermatitits Left upper lip and right medial upper cheek two milia A: History of multiple BCC seborrheic keratosis Mild hand dermatitis P: Sunscreen and sun avoidance discussed Patient should perform regular self exam Regular followup as scheduled to detect new lesions Instruction given on what to look for in terms of worrisome lesions Patient told to call us with any concerning lesions prior to next visit Annual followup Hal Diamond MD Chief of Dermatology [facility] * Missy Keenan - 08/14/2015 0818 EDT Review of Systems Constitutional: Negative for [...] sleep disturbance. The patient is not nervous/anxious. Missy Keenan 08/14/2015 8:18 Hal Diamond MD Chief of Dermatology [facility] documented in this encounter Plan of Treatment Upcoming Encounters Date Type Department Care Team (Late st Contact Info) Description 07/12/2024 11:00 EDT Office Visit [facility] Endocrinology - [facility] [address] [place] [address] Dana Lee DO [address] [place] [phone] documented as of this encounter Visit Diagnoses Diagnosis History of basal cell carcinoma- Primary Personal history of other malignant neoplasm of skin documented in this encounter Historical Medications * This list may reflect changes made after this encounter. GLUC/CHND/OM3/DHA/E PA/FISH/STR (GLUCOSAMINE CHONDROITIN PLUS ORAL) Take by mouth. added in this encounter Care Teams Director Behavioral Health Relationship Specialty Start Date End Date Brittani Gardiner MD [address] [place] [address] PCP - General 06/18/12 documented as of this encounter
--- OUTSIDE RECORDS SUMMARY | 2024-05-12 20:56 | XMS_ITS | Encounter Summary ---
Author Organization [facility] Address [address] [place] [address] Care Team Providers Care Health Informatics Specialist Name Role Phone Brittani Gardiner MD Primary Care Provider [phone] Reason for Visit * Reason Comments Suture / Staple Removal Encounter Details Date Type Department Care Team (Late st Contact Info) Description 10/11/2014 10:30 EDT Office Visit [facility] Dermatology [address] [address] Unknown, Provider, Basal cell carcinoma of nose (Primary Dx) [...] OF OTHER AND UNSPECIFIED PARTS OF FACE[ICD-9-CM] V58.32 ENCOUNTER FOR REMOVAL OF SUTURES[ICD-9-CM] documented in this encounter Patient Instructions * Patient Instructions* Lanette Turcios - 10/11/2014 11:[address] [facility] DEPARTMENT OF DERMATOLOGY Instructions for Steri-Strips 1. Leave steri-strips in place until they fall off on their own. 2. Wash wound daily with soap and water. Pat dry. 3. Do not apply any oils, lotions, or sunscreens to the area while the steri- strips are still adhered to the wound. 4. Once all of the steri-strips are gone, you may resume your regular skin care routine, including washing with mild soap and water, applying moisturizer, makeup, and sunscreen. 5. If there are any open or bleeding areas at the scar/graft site you should begin to cover the area with a bandage daily as follows: ??? Clean and dry the area with plain tap water using a Q-tip or sterile gauze pad. ??? Apply vaseline ointment to any open areas. ??? Cover the wound with a band-aid or sterile non-stick gauze pad and tape. ??? Repeat the instructions above until the wound is completely healed. If the procedure required sutures, the suture line will be dark pink at first and the edges of the wound will be reddened. This will lighten up day by day and will be less tender. The suture line mayalso be firm, especially on the lip/chin area and will also fade with time. It may take up to 6-12 months for redness and firmness to fade. Numbness in the surgical area is expected. It might take 12-18 months for the feeling to return to normal. During this time, sensations of itchiness, tingling, and occasional sharp pains might be noted. These feelings are normal and will subside once the nerves have completely healed. Begin to massage the area 6 weeks after surgery. Massaging the area will help the scar soften and fade quicker. To massage, apply pressure directly and firmly over the scar with the fingertips and move lengthwise along the scar. Massage the area for up to 10 minutes several times a day. About 6-8 weeks after surgery it is not uncommon to see tender 'pimple-like' bumps along the scar. This is normal as the scar continues to mature and the stitches underneath the skin begin to dissolve. Do not pick or squeeze - this will resolve on its own. Should one break open producing a small amount of drainage, apply polysporin or bacitracin ointment a few times a day until it is completely healed. CONTACT THE OFFICE If the wound becomes increasingly red, warm to touch, increased pain, drainage with a foul odor, rapid swelling of the wound, and/or if you develop a fever or chills, please call our office immediately or . documented in this encounter Progress Notes * Lanette Turcios - 10/12/2014 9514 EDT Images from the original note were not included. SUTURE REMOVAL NOTE CC: SUTURE REMOVAL Ms. Aguilera is status post Mohs on 10/04/14 for BCC on the left nasal ala with Dr. Hal Diamond. SUBJECTIVE: Patient reports no concern. OBJECTIVE: There were no vitals taken for this visit. Wound edges: well-approximated Wound site: pink Drainage: none PLAN: Wound cleansed from center outward with normal saline and hibiclens Sutures: all sutures removed Dressing: steristrips applied FOLLOW UP Patient advised to return to follow-up care as planned or sooner if concerned. Post suture removal wound care instructions given to patient. Note: I was supervised by Dr. Hal Diamond who was present and immediately available in the officesuite. Lanette Turcios 10/12/2014 14:47 documented in this encounter Plan of Treatment Upcoming Encounters Date Type Department Care Team (Late st Contact Info) Description 07/12/2024 11:00 EDT Office Visit [facility] Endocrinology - [address] [place] [address] Dana Lee DO [address] [place] [phone] documented as of this encounter Visit Diagnoses Diagnosis Basal cell carcinoma of nose- Primary Basal cell carcinoma of skin of other and unspecified parts of face documented in this encounter Care Teams Health Informatics Specialist Relationship Specialty Start Date End Date Brittani Gardiner MD [address] [facility] [address] [place] [address] PCP - General 06/18/12 documented as of this encounter
--- OUTSIDE RECORDS SUMMARY | 2024-05-12 20:56 | XMS_ITS | Encounter Summary ---
Author Organization [facility] Address [address] [place] [address] Care Team Providers Care Washer Machine Name Role Phone Brittani Gardiner MD Primary Care Provider [phone]- [phone] Reason for Visit * Reason Onset Date Comments Post-op Problem 02/10/2014 Encounter Details Date Type Department Care Team (Late st Contact Info) Description 02/10/2014 Telephone [facility] Dermatology 3rd Floor [facility] [address] [place] [address] Hal Diamond MD [address] [place] [address] [place] [phone] Post-op Problem Social History Tobacco Use Types Packs/Day Years [...] encounter Miscellaneous Notes * Telephone Encounter - Toña Craig - 02/14/2014 1223 EST Patient call back and stated that is a blue suture and is still present post suture removal. Tender to touch And a bit inflammed Patient is going to go see her PCP or Dr. Zaman in [place] to have the suture removed. If she fill that she needs to come see us she will call back to make an appointment with Nursing team. Toña Craig 12:28 02/14/2014 * Telephone Encounter - Saima Macias RN - 02/10/2014 1639 EST Status post excision of Basal cell carcinoma, nodular left forearm 11/09/13 with Hal Diamond MD Left a message for patient to call back SAIMA MACIAS RN 02/10/2014 16:42 * Telephone Encounter - Michelle Regan - 02/10/2014 1340 EST Patient had surgery on her arm on 11.09.14. Patient reports that she thinks there may be a suture still in the incision. Please call. documented in this encounter Plan of Treatment Upcoming Encounters Date Type Department Care Team (Late st Contact Info) Description 07/12/2024 11:00 EDT Office Visit [facility] Endocrinology - [address] [address] Dana Lee, [address] [place] [phone] documented as of this encounter Visit Diagnoses Not on filedocumented in this encounter Care Teams Washer Machine Relationship Specialty Start Date End Date Brittani Gardiner MD [address] [place] [address] PCP - General 06/18/12 documented as of this encounter
--- OUTSIDE RECORDS SUMMARY | 2024-05-12 20:56 | XMS_ITS | Encounter Summary ---
Author Organization [facility] Address [address] [place] [address] Care Team Providers Care Banquet Food Server Name Role Phone Madi Connell MD Primary Care Provider [phone] Encounter Details Date Type Department Care Team (Late st Contact Info) Description 02/09/2007 Before PRISM Converted Visit (Maple) [facility] - Maple conversion [address] [place] [address] Odette Cox MD [address] [place] [phone] Social History Tobacco Use Types Packs/Day Years Used Date Smoking Tobacco: Never Assessed Comments Unknown Sex and Gender Information Value Date Recorded Sex Assigned at Not on file Legal Sex Female 18:35 EST Gender Identity Not on file Sexual Orientation Not on file documented as of this encounter Progress Notes * Odette Cox MD - 02/07/2009 1040 EST DIVISION OF DERMATOLOGY PROGRESS/FOLLOWUP NOTE - 02/09/2007 CHIEF COMPLAINT Skin check. SUBJECTIVE Annual visit for this 61-year-old woman with a history of basal cell carcinoma on the [place]rem[place] in [place] by a Mohs surgeon in 2000. She has since been followed on a regular basis. Atlast visit, in January 2006, she was not noted to have any concerns. She has been watching her skin carefully and is not aware of any new or changing lesions. She does describe a ???strange sensation?? on the skin of her left forearm. She feels like there is increased sensitivity in the area, buthas not noticed any associated skin rash or findings. She has been good about sun protection. Her interval health has been good. CURRENT MEDICATIONS Her present medications include largely supplements and aspirin. She takes Amerge p.r.n. for migraines. ALLERGIES No known drug allergies. OBJECTIVE Well-appearing, pleasant woman. Complete skin examination was undertaken including scalp, face, neck, chest, back, abdomen, buttocks and upper and lower extremities. There is moderate actinic damage in all sun-exposed areas. There is a well-healed surgical scar along the left lateral forehead. No evidence of tumor recurrence. There is chronic actinic damage in sun exposed areas of the face, neck,chest and extremities and there are waxy keratoses on the trunk and extremities. A few goodwin angiomas.No suspicious lesions were seen on complete exam. The skin on both forearms is slightly hyperpigmented, but without evidence of pathology. Sensation appears to be intact bilaterally. No head or neck adenopathy of significance. ASSESSMENT 1. History of BCC left forehead, no evidence of tumor recurrence. 2. Hyperesthesia left forearm. 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 I see no primary skin pathology. 3. Seborrheic keratoses. 4. Chronic actinic damage. PLAN 1. Findings were discussed with patient who was reassured about benign appearance of her exam. She should continue aggressive sun protection and regular self skin exam. 2. She will see Dr. Madi Connell later this month, at which time she will discuss the hypersensitivity on her forearm to see if this could be neurologic in nature. 3. Follow up one year. Signed by Odette Cox MD 02/19/2007 16:04 Odette Cox MD - Odette Cox MD - dd Job ID: [id number] Doc ID: [id number] cc: MD Odette Guardado MD - dd Job ID: [id number] Doc ID: [id number] cc: Madi Connell MD documented in this encounter Plan of Treatment Upcoming Encounters Date Type Department Care Team (Late st Contact Info) Description 07/12/2024 11:00 EDT Office Visit [facility] Endocrinology - [address] [address] Dana Lee, DO [address] [place] [phone] documented as of this encounter Visit Diagnoses Not on filedocumented in this encounter Care Teams Banquet Food Server Relationship Specialty Start Date End Date Madi Connell MD [address] [address] PCP - General 02/02/09 06/17/12 documented as of this encounter
--- OUTSIDE RECORDS SUMMARY | 2024-05-12 20:56 | XMS_ITS | Encounter Summary ---
Author Organization [facility] Address [address] [place] [address] Care Team Providers Care Family Practice Physician Assistant Name Role Phone Brittani Gardiner MD Primary Care Provider [phone] Reason for Referral * Medication Prior Authorization (Urgent) - Specialty Report Received Specialty Diagnoses / Procedures Referred By Contac t Referred To Contact Diagnoses Age-related osteoporosis without current pathological fracture Enedina Kaiser DO Phone: tel: fax: Referral ID Status Reason Start Date Expiration Date Visits Requested Visits Authorized [id number] Specialty Report Received Specialty Services Required 06/12/2023 1 1 Question Answer What is the medication to be prior authorized? Reclast What is the medication dose? 5 mg What is the medication frequency? once yearly Additional notes for scheduling/prior authorization staff: [facility] Comments The purpose of this request is to inform precertification staff that the requested service needs to be reviewed for prior-authorization. [facility] * Laboratory Services (Routine/Next Available) - New Request Specialty Diagnoses / Procedures Referred By Contac t Referred To Contact Diagnoses Age-related osteoporosis without current pathological fracture Procedures THYROID CASCADE Enedina Kaiser DO Phone: tel: fax: Referral ID Status Reason Start Date Expiration Date V isits Requested Visits Authorized [id number] New Request 06/12/2023 1 1 * Laboratory Services (Routine/Next Available) - New Request Specialty Diagnoses / Procedures Referred By Contmargarita jones Referred To Contact Diagnoses Age-related osteoporosis without current pathological fracture Procedures PTH INTACT Enedina Kaiser DO Phone: tel: fax: Referral ID Status Reason Start Date Expiration Date V isits Requested Visits Authorized [id number] New Request 06/12/2023 1 1 Reason for Visit * Reason Comments Osteoporosis * Referral (Routine) - Receiving Office to Obtain Authorization Specialty Diagnoses / Procedures Referred By Contmargarita jones Referred To Contact Endocrinology Diagnoses Age-related osteoporosis without current pathological fracture Brittani Gardiner MD [address] [place] [address] Phone: tel: fax: [address] [address] Phone: tel: fax: Referral ID Status Reason Start Date Expiration Date Visits Requested Visits Authorized [id number] Receiving Office to Obtain Authorization 1 1 Encounter Details Date Type Department Care Team (Latest Contact Info) Description 06/12/2023 13:00 EDT Office Visit [address] [address] Bone, Rheum Fellow, DO Age-related osteoporosis without current pathological fracture (Primary Dx) Social History Tobacco Use Types [...] EDT Pulse 63 06/12/2023 1309 EDT Temperature - - Respiratory Rate - - Oxygen Saturation - - Inhaled Oxygen Concentration - - Weight 53.4 kg (117 lb 11.2 oz) 06/12/2023 1309 EDT Height 154.9 cm (5' 1) 06/12/2023 1309 EDT Body Mass Index 22.24 06/12/2023 1309 EDT documented in this encounter Functional Status * [...] this encounter Patient Instructions * Patient Instructions* Catina Goff MD - 06/12/2023 13:00 EDT - Get blood work done at [facility] to check your calcium and for secondary causes of osteoporosis - I've ordered the once yearly Reclast infusions to be done at [facility]. This has to go through your insurance first and they will call you to schedule - We will see you back in 1 year Website for calculating calcium intake: https://www.osteoporosis.foundation/educational-hub/topic/calcium-calculator CALCIUM AND VITAMIN D SUPPLEMENTATION Lack of calcium contributes to the development of osteoporosis. Many published studies show that low calcium intake is associated with low bone mass and high fracture rates. The body needs vitamin D to absorb calcium. You can get vitamin D through the skin from sunlight, diet, or supplements. Recommended daily calcium intake Age 19-50 - 1,000 mg Males age 51-70 - 1,000 mg Females age 51-70 - 1,200 mg Age over 70 - 1,200 mg Recommended daily vitamin D intake (IU - international units) Age 19-70 - 600 IU Age over 70 - 800 IU Higher amounts may be suggested 4,000 IU is considered safe for most adults Additional Considerations Getting vitamins and minerals through your diet is preferred over supplementation, though this may be difficult achieve. Remember to consider your typical dietary intake when choosing a supplement. Visit the National Osteoporosis Foundation website for other helpful information at www.nof.org. Calcium (mg) in Common Foods Food mg Fortified oatmeal, 1 packet 350 Sardines, canned in oil, edible bones, 3 oz. 324 Cheddar cheese, 1?? oz. shredded 306 Milk, nonfat, 1 cup 302 Milkshake, 1 cup 300 Yogurt, plain, low fat, 1 cup 300 Soybeans, cooked, 1 cup 261 Tofu, firm, with calcium, ?? cup 204 Northrop juice, fortified with calcium, 6 oz. 200-260 [place], canned, with edible bones, 3 oz. 181 Pudding, instant made with 2% milk, ?? cup 153 Baked beans, 1 cup 142 Cottage cheese, 1% milk fat, 1 cup 138 Spaghetti, lasagna, 1 cup 125 Frozen yogurt, vanilla, soft serve, ?? cup 103 Emtht-ki-tmt fortified cereal, 1 cup 100-1,000 Cheese pizza, 1 slice 100 Fortified waffles, 2 100 Turnip greens, boiled, ?? cup 99 Broccoli, raw, 1 cup 90 Ice cream, vanilla, ?? cup 85 Soy, almond, rice milk, fortified, 1 cup 80-500 Vitamin D (IU) in Common Foods Food IU Cod liver oil, 1 tablespoon 1,360 Swordfish, cooked, 3 oz 566 [place] (sockeye), cooked, 3 oz 447 Tuna fish, canned in water, drained, 3 oz 154 Northrop juice, fortified, 1 cup (varies) 137 Milk, non/reduced fat, whole, fortified 1 cup 115-124 Yogurt, fortified, 6 oz (varies) 80 Margarine, fortified, 1 tablespoon 60 Sardines, canned in oil, drained, 2 sardines 46 Liver, beef, cooked, 3 oz 42 Egg, 1 large (vitamin D is found in yolk) 41 Cereal, fortified, 0.75-1 cup (varies) 40 Cheese, Singaporean, 1 oz 6 Exercise Right to Prevent Fractures Finding out you have low bone density is frightening. Suddenly you worry that even the smallest activity may cause a fracture. Exercise is still very important to maintaining healthy bones, but thereare types of movements you should do and those you should avoid. First and foremost, you will need to protect yourself from fractures especially of the spine (vertebra), the hip (neck of the femur) and the wrist. Protecting Your Spine Forward bending puts dangerous pressure on spine bones, especially from the waist up. If you must bend to lift an object, hinge at the hips with a straight back and neutral or straight spine. Do exercises that extend or arch the mid back, strengthen the back, improve posture and protect the spine. What to avoid: rounding at the mid back or the waist rapid twisting of the spine or side bending lifting heavy objects with a rounded back getting out of bed with a rounded back (Roll to your side first, then push yourself up to sitting with your elbow) sitting on the toilet in a slumped position. all abdominal crunches, curl-ups, oblique rotations, rollups, rollovers and plough. Protecting Your Hips Hip fractures usually occur when you fall, so the best way to prevent hip fractures is to improve your balance to prevent falls. Stand on one leg every day. Try balancing when you are waiting in lineat the grocery store or brushing your teeth. Make sure you have something sturdy to hold on to if you feel unsteady. Do exercises that strengthen the buttocks and extend the hip while standing or while on all fours (hands and knees) lifting your leg behind you. What to avoid: planting your feet and twisting in place doing strong hip rotation stretches like the pigeon pose in yoga Protecting Your Wrist The wrist can fracture when you fall with outstretched arms. If you practice your single leg standing balance you will minimize your risk of falling. Do exercises on all fours to strengthen your wrists. [employer] is an exercise program designed for patients with osteoporosis. There is programming all over the [facility]. You can find more information at: [facility].org/community-impact/our-programs/bone-builders/ BISPHOSPHONATE THERAPY - Patient Fact Sheet WHAT IS IT? Bisphosphonates are a group of medicines used to treat bone problems, called osteopenia or osteoporosis, which are conditions associated with thin or fragile bones that are at increased risk for fracture. These medications are given to patients with low bone density or to patients with a history offragility bone fractures in the hip, arm, wrist or spine. The medications help strengthen the bonesand prevent future bone fractures. They are commonly prescribed with calcium and vitamin D to help keep the bones strong. In addition to treating osteopenia and osteoporosis, this group of medications may be used to treat Paget's disease, and cancer that has spread (metastasized) to the bone. Family of Bisphosphonates includes: Oral: Alendronate (Fosamax), risedronate (Actonel), and ibandronate (Boniva). IV: Pamidronate, ibandronate and zoledronic acid (Reclast/Zometa). The bone cells in our bodies are constantly being slowly removed and replaced with new bone cells. This happens throughout our entire life. Osteoclasts are cells in our bodies that remove old bone and the osteoblast cells replace it with new bone. Bisphosphonates work by reducing osteoclast activity and hence reducing the turnover of bone or removal of old bone. As we age and in certain diseases,the bone is actually being removed or damaged faster than your body is able to replace it. This leaves the bones thin and weakened, and much more likely to fracture with even a small impact or a fallfrom a standing height. Bisphosphonate medications help to preserve your bone density and bone strength. HOW TO TAKE IT Alendronate, risedronate and ibandronate are oral medications taken either daily, weekly or monthlydepending on your other medical conditions and disease being treated. Typically, in the treatment of osteoporosis, alendronate is given 70 mg by mouth once a week and risedronate is given by mouth 35mg weekly or 150 mg monthly. Ibandronate is given orally 150 mg once a month. These medications have to be taken first thing in the morning on an empty stomach with an 8 oz glass of water. Do not take it with other beverages. You must remain upright (sitting or standing--no lying down) for 30 minutes after taking the medication. Do not take any additional medications, beverages or food for 45 to 60 minutes after taking the medication. Your doctor will discuss the duration of treatment that is recommended for you. With a low fracture risk, your doctor may recommend that you take alendronate for 5 years, followedby a drug holiday (break from treatment). Zoledronic acid is given as an infusion through a vein in your arm at your doctor's office. The dose is 5 mg given once a year, with consideration given for discontinuing it (followed by a drug holiday) after 3 years if your fracture risk is low. Calcium and vitamin D are commonly recommended to betaken with these medications. SIDE EFFECTS Side effects to oral bisphosphonates include: muscle cramps/pain, pain with swallowing, heartburn, abdominal pain, nausea, headache, and/or rash. Side effects to zoledronic acid include low blood pressure, dizziness, fatigue, headaches, muscle pain, weakness, GI symptoms (nausea and constipation), fever and/or rash. These side effects may last1 to 2 days and up to 10 to 12 days after your infusion. For either oral or intravenous (injection into vein) medications, there is a rare risk of developing a jaw or tooth problem, called osteonecrosis of the jaw. Osteonecrosis of the jaw is typically associated with trauma to the jaw (tooth extraction), history of malignancy and/or infections while on bisphosphonate therapy. It is recommended that you have a good dental exam prior to starting these medications. Notify your doctor if you develop side effects to the medications. Abnormal fractures ofthe femur (thigh bone) have been associated with bisphosphonate therapy, especially if taken for many years. An atypical femoral fracture typically presents as thigh pain. TELL YOUR DOCTOR Bisphosphonate medications stay in your body for long periods of time even after stopping the medication. You may be able to discontinue therapy with bisphosphonates after five years of use if your fracture risk is low. Continue to follow up with your doctor for monitoring and repeat bone density scans about every 1 to 2 years; your doctor will decide how often the test should be repeated. Prolonged use of bisphosphonates increases the risk of stress fractures in your thigh/hip (atypicalfemoral fracture). Tell your doctor if you develop any new pain in the thighs. You should not take this medication if you have: kidney problems, low calcium levels, inability to stand or sit upright for at least 30 minutes. If you have difficulty swallowing or history of heartburn, you should not take an oral bisphosphonate; an infusion with zoledronic acid may be preferred. Do not take these medications if you are , , or may become . Remembering to take these medications regularly, and as directed, will increase your benefits from the medications. You can just stop the medication at any time, but please inform your doctor if you do. ?? 2019 [employer] documented in this encounter Progress Notes * Catina Goff MD - 06/12/2023 1300 EDT [facility] New Patient Visit The patient was sent here for a consultation by Dr. Gardiner for evaluation of osteoporosis. The patient was first diagnosed in 11/2022. She did have a history of osteopenia. Her routine screening at age 63 yo was normal. She has not had any fractures. There has been minimal height loss since youth, maybe 0.5. She has had a tough year, care giving for her and her own health has been on the side line.She does feel a bit weaker. She has had recent falls, usually mechanical. Last fall in 03/2023 when she was wearing snow boots and caught the edge of her table. She takes adequate amounts of calcium and vitamin D daily between her diet and supplements. She is just taking 600 U of vitamin D, she is not take calcium supplements. She does eat tofu and yogurt. She was doing chair yoga, now resuming. She does weekly exercise program at [place]. 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 She denies any history of kidney stones. Her dental exams are up to date, no recent issues. Her last DXA was performed in 11/2022 and showed lumbar spine T-score -1.3, mean femoral neck and mean total hip T-score -2.6. The DXA showed a decline from her previous. The patient feels well in general. She denies any weight changes, trouble swallowing, chest pain, palpitations or trouble breathing. Her bowel movements are normal, did have some constipation on calcium. The patient denies any hair or skin changes, muscle weakness or easy bruising. She denies history of GERD. The remainder of review of systems is unremarkable. Risk Factors: On review of her history, the following risk factors were identified: YES OR NO Previous fracture after age 40 NO Previous fracture as child or young adult NO Low body mass index YES Low consumption of calcium over lifetime NO Family history of osteoporosis NO One or both parents with hip fracture NO Current smoking NO Past smoking NO Hyperthyroidism NO Thyroid cancer on replacement NO Hyperparathyroidism NO Kidney insufficiency NO Rheumatoid arthritis NO Partial or complete paralysis NO Previous gastric resection NO Bariatric surgery or procedure NO Eating disorder/anorexia nervosa NO Alcohol excess NO Diabetes NO Organ transplant NO Lack of sun exposure NO Lack of regular exercise NO Exercise: Any falls in last year? YES If yes, how many 1 Able to get up from a chair without using hands? YES Menstrual History: Age of menopause: young, age ~43 yo Age of menarche: 10-11 yo Hormone therapy. She was on HRT for ~ 10 years Use of the following medications. If so when? YES OR NO Dates Glucocorticoids NO Anti-seizure medication NO GNRH agonists NO TZDs NO Aromatase inhibitors NO Depo medroxyprogesterone NO Androgen deprivation therapy NO Chemotherapy NO Anti-rejection therapy NO High dose thyroid replacement NO Proton pump inhibitors NO Use of Therapeutic Agents: YES OR NO Type When Dose Side Effects Bisphosphonate NO SERM - raloxifene No Calcitonin No Testosterone No Teriparatide No Denosumab No Use of Calcium and Vitamin D: YES OR NO Dose Frequency How Long Calcium Carbonate No Calcium Citrate No Other Calcium? No Vitamin D Yes Dietary Calcium Yes Past medical/surgical history, medications, allergies, family history and social history were reviewed. No osteoporosis in the family. Physical exam: BP 140/70 Pulse 63 Ht 154.9 cm (61) Wt 53.4 kg (117 lb 11.2 oz) BMI 22.24 kg/m?? Gen: well developed, gait steady, pleasant NAD. HEENT: anicteric sclera, MMM, no abnormal hair or skin changes noted. Neck: supple, no thyromegaly or lymphadenopathy, no JVD. Heart: regular with no murmurs. Lungs: clear bilaterally, no wheeze. Abdomen: soft, non tender, non distended, no organomegaly appreciated, no abnormal striae seen, no mass or bruits. Extremities: No peripheral edema, pulses intact, no tremor of hands. Spine: Non tender, no increased kyphosis. Labs: Blood work 10/2022: WBC 5.79, Hgb 13, Plt 253 Cr 0.74 Ca 9.2 AST 17, ALT 20 Imaging: DXA 11/2022: Assessment/Plan: Ms. Estela Aguilera is a 77 y.o. female who is here for a new patient visit for osteoporosis # Osteoporosis We reviewed the pathophysiology of bone loss and the results of the patient's last DXA in detail. We talked about the importance of proper calcium and vitamin D intake along with weight bearing exercise and fall prevention for bone health. Patient has been already working on weight bearing exercisewith chair yoga. The patient's risk for fracture is high given minimum T score of -2.6. We discussed different medication options at this time and their potential side effects. We reviewed the safety data available in regards to longterm bisphosphonate use. At this time, we have decided to proceed with zoledronic a lucio infusions once yearly. The patient will then have a repeat DXA performed in one year on the same machine as her previous to assess her response. She will call sooner with any change in symptoms or concerns. Although I strongly suspect her osteoporosis is age related with some additional risk factors including early menopause, and low BMI, we will evaluate her for secondary causes with TSH, and PTH. She will need a repeat CMP prior to initiation of zoledronic acid for Ca recheck, as last was in in 10/2022. - evaluate for secondary causes with CMP, PTH, 25OH vitamin D level, TSH - START zoledronic acid infusion through [facility] - follow up in 1 year to assess response to therapy The patient will return in 12 months. Thank you for allowing me to participate in this patient's care. Catina Goff PGY4, Rheumatology Fellowship Attestation statement: I performed or was present during the amato or critical portions of the visit and participated in the management of the patient. I agree with the findings and plan of care documented in the resident's/fellow's note. Enedina Kaiser DO 06/12/2023 16:17 documented in this encounter Plan of Treatment Upcoming Encounters Date Type Department Care Team (Late st Contact Info) Description 07/12/2024 11:00 EDT Office Visit [facility] Endocrinology - [address] [place] [address] Dana Lee DO [address] [place] [id number] Scheduled Orders Name Type Priority Associated Diagnoses Orde r Schedule PTH INTACT Lab Routine Age-related osteoporosis without current pathological fracture Expected: 06/12/2023 (Approximate), Expires: 06/11/2024 THYROID CASCADE Lab Routine Age-related osteoporosis without current pathological fracture Expected: 06/12/2023 (Approximate), Expires: 06/11/2024 Scheduled Referrals Name Type Priority Associated Diagnoses Orde r Schedule AMB CONS/FOLLOW UP INFUSIONS PRIOR AUTHORIZATION REQUEST Outpatient Referral Urgent Age-related osteoporosis without current pathological fracture Expected: 06/14/2023 (Approximate), Expires: 06/11/2024 documented as of this encounter Visit Diagnoses Diagnosis Age-related osteoporosis without current pathological fracture- Primary Senile osteoporosis documented in this encounter Care Teams Family Practice Physician Assistant Relationship Specialty Start Date End Date Brittani Gardiner MD [facility] [address] [place] [address] PCP - General 06/18/12 documented as of this encounter
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
--- OUTSIDE RECORDS SUMMARY | 2024-05-12 20:56 | XMS_ITS | Encounter Summary ---
Author Organization [facility] Address [address] [place] [address] Care Team Providers Care Curator Natural History Museum Name Role Phone Tree Connell MD Primary Care Provider [phone] Encounter Details Date Type Department Care Team (Late st Contact Info) Description 01/04/2010 Results Only [facility] - [facility] ([place]) [address] [place], [place] [address] Tree Connell MD [address] [id number] Social History Tobacco Use Types Packs/Day Years [...] Info) Description 07/12/2024 11:00 EDT Office Visit [facility] Endocrinology - [address] [address] [place], [address] [place] [phone] documented as of this encounter Procedures Procedure Name Priority Date/Time Associated Diagnosis Comments CYTOPATHOLOGY Routine 01/04/2010 0:00 EDT documented in this encounter Results * CYTOPATHOLOGY (01/04/2010 0:00 EDT) Pathology Report: CYTOPATHOLOGY REPORT ? Reports generated via electronic interface contain original data; ? however they are lacking the format of the original report. ? Caution should be taken when reading/interpreti ng unformatted reports. ? Name: ? NEREYDA AGUILERA ? Accession #: ? [id number] ? : ? 1945 (Age: 64) ??F ?Collect Date: ? 01/04/2010 ? Location: ? [facility] ? Receive Date: ? 01/07/2010 ? Provider: ?TREE CODDAIRE MD ? Copy to: ? Specimen/Source: ?Pap Test, Cervix, ThinPrep Imaging System with manual ?? evaluation ? Last Menstrual Period: ? Other: ? HPVA - HPV testing requested if ASC-US on the current ThinPrep Pap test. ? SPECIMEN ADEQUACY ? Satisfactory for Evaluation ? - assessment of transformation zone component not applicable ( e.g. atrophy, ? vaginal sample, hysterectomy) ? - scant squamous epithelial component ? GENERAL CATEGORIZATION ? Negative for Intraepithelial Lesion or Malignancy ? Document reviewed and electronically signed by: ? Liv Simpson, SCT(ASCP) ? Report Date: ??01/09/2010 11:48 ? End of Report ? [facility] 01/04/2010 01/07/2010 us Tree Connell MD PATHOLOGY ORDERABLES Final R esult Performing Organization Address City/State/[facility] Co de Phone Number [facility] [address] [place] [address] documented in this encounter Visit Diagnoses Not on filedocumented in this encounter Care Teams Curator [employer] Museum Relationship Specialty Start Date End Date Tree Connell MD [address] [address] PCP - General 02/02/09 06/17/12 documented as of this encounter
--- OUTSIDE RECORDS SUMMARY | 2024-05-12 20:56 | XMS_ITS | Encounter Summary ---
Author Organization [facility] Address [address] [place] [address] Care Team Providers Care Director Epidemiology Name Role Phone Brittani Gardiner MD Primary Care Provider [phone] Reason for Visit * Reason Onset Date Comments Medication Management 08/05/2013 Encounter Details Date Type Department Care Team (Late st Contact Info) Description 08/05/2013 Telephone [facility] Dermatology 3rd Floor [facility] [address] [place] [address] Hal Diamond MD [address] [place] [address] [place] [phone] Medication Management Social History Tobacco Use Types Packs/Day Years [...] on file documented as of this encounter Ordered Prescriptions Prescription Sig Dispense Quantity Refills Last Filled Start Date End Date urea (CARMOL) 20 % cream Apply topically twice a day to rough areas.. 40 g 1 08/11/2013 documented in this encounter Miscellaneous Notes * Telephone Encounter - Brandi Roca - 08/05/2013 1356 EDT Contact Information for the new Pharmacy: [facility]. Phone: * Telephone Encounter - Brandi Roca - 08/05/2013 1310 EDT Patient would like Urea Cream sent to [facility]. [phone] instead of her current pharmacy in [place]. I informed the patient that the over the counter option is AmLactin but Dr. Diamond suggests using the Urea Cream instead. She states that she wants to see if the Urea cream is cheaper through this pharmacy. I told her I would send the Rx request to Dr. Diamond. Patient verbalized understanding with no barriers. Brandi Roca 08/05/2013 * Telephone Encounter - Urvashi Marshall - 08/05/2013 0920 EDT Estela called and states that Dr. Diamond sent a prescription for urea cream, patient states this her insurance will not cover this prescription and it will cost too much. Patient states that Dr. Diamond was going to tell her an over the counter product that would work if this was not cover. Patientwould like to know what this product is. Please call. documented in this encounter Plan of Treatment Upcoming Encounters Date Type Department Care Team (Late st Contact Info) Description 07/12/2024 11:00 EDT Office Visit [facility] Endocrinology - [address] [address] [place] Lee DO [address] [place] [phone] documented as of this encounter Visit Diagnoses Not on filedocumented in this encounter Discontinued Medications Medication Sig Discontinue Reason Start Date End Da te urea (CARMOL) 20 % cream Apply topically twice a day to rough areas.. Reorder 08/02/2013 08/11/2013 documented as of this encounter Care Teams Director Epidemiology Relationship Specialty Start Date End Date Brittani Gardiner MD [address] [place] [address] PCP - General 06/18/12 documented as of this encounter
--- OUTSIDE RECORDS SUMMARY | 2024-05-12 20:56 | XMS_ITS | Encounter Summary ---
Author Organization [facility] Address [address] [place] [address] Care Team Providers Care Pouring Crane Operator Name Role Phone Brittani Gardiner MD Primary Care Provider [phone] Reason for Visit * Reason Comments Skin Cancer Follow Up concerned with spo t on scalp; right mormonism; right arm; right toe. Encounter Details Date Type Department Care Team (Late st Contact Info) Description 06/22/2012 14:15 EDT Office Visit [facility] Dermatology 3rd Floor [facility] [address] [place], [place] [phone] Hal Diamond MD [address] [place] [address] [place] [phone] Seborrheic keratosis, inflamed (Primary Dx); Personal history of other malignant neoplasm of skin Social History Tobacco Use Types Packs/Day Years [...] this encounter Patient Instructions * Patient Instructions* Rachel Patten MD - 06/22/2012 14:51 EDT DERMATOLOGY - WOUND CARE INSTRUCTIONS If you had Liquid Nitrogen Therapy, the area may swell, form blisters and throb for 24 hours. The scabs that form should fall off within 14-21 days. It is normal to see blood in the blisters. Try to keep the blister roof intact. If the blisters open, it is okay to cleanse gently with warm water andsoap, then apply plain petroleum jelly until the area has healed. It is not recommended to use triple antibiotic ointment or other ointments as they can cause allergic reactions and do not prevent infection. Cover the wound with a non-stick dressing or gauze pad and a piece of paper tape. It is important to keep the wound covered. APPEARANCE: There may be swelling and bruising around the wound, especially near the eyes. You may also experience redness, itching or ???pulling?? sensations around the wound as it heals. Healing time depends on the size, depth are of the wound. CONTACT THE OFFICE: If the wound becomes increasingly red more than 1cm away from the wound edge, warm to touch, increased pain, drainage with a foul odor, rapid swelling of the wound and/or if you develop a fever or chills, please call our office at or . documented in this encounter Progress Notes * Rachel Patten MD - 06/22/2012 6613 EDT S: 66 year old female here for f/u NMSC (per chart review, patient with history of BCC left mormonism, 2000). Today, main concern is a growth on the top of her head that has been present for at least one month, recently more irritated. O: A total body skin exam today was performed including the hair, scalp, face, eyelids, ears, neck,back, chest, abdomen, upper extremities, hands, fingernails, lower extremities, feet, and toenails. Evaluation of the buttocks and genitals were declined per patient preference. Significant findings include: Wilson of scalp with flesh-colored papule with hemorrhagic crust Left anterior neck with flesh-colored verrucoid papule with erythematous base A: Seborrheic keratoses, inflamed, crown of scalp and left anterior neck P: Cryotherapy today CRYOSURGERY PROCEDURE NOTE PATIENT INFORMATION: Estela Aguilera : MRN: [id number] PROVIDER: Hal Diamond MD who performed the procedure(s) The indication, risks, benefits and alternatives to this procedure were discussed in detail with the patient and questions were answered. The below noted lesions were then destroyed with liquid nitrogen cryosurgery using two freeze-thaw cycles. The expected healing course was discussed, and it was noted that sometimes lesions do not fully resolve, and cryosurgery can cause a white spot or a scar.Verbal wound care instructions were given. SITE/LESION TYPE/DIAGNOSIS: Lesion(s) A: Location: Wilson of scalp and left anterior neck Lesion Type/Diagnosis: 2 irritated seborrheic keratosis(es) A: History of NMSC, left mormonism (Basal cell carcinoma 173.31) P: No lesions suspicious for skin cancer on exam Continue yearly exams and self exams at home Continue sun protection Rachel Patten MD 06/22/2012 14:45 Dermatologic Surgery Fellow Attestation statement: I saw and examined the patient with the resident/fellow. I agree with the findings and plan of care documented in the resident's/fellow's note. I personally performed the procedure Hal Diamond MD Chief of Dermatology [facility] * Tisha Hardwick - 06/22/2012 1438 EDT Review of Systems Constitutional: Negative for fever, fatigue and unexpected weight change. HENT: Negative for mouth sores. Eyes: Negative for pain. Respiratory: Negative for cough and shortness of breath. Cardiovascular: Negative for chest pain and palpitations. Gastrointestinal: Negative for nausea, vomiting, abdominal pain, diarrhea, constipation and blood in stool. Genitourinary: Negative for dysuria, frequency and hematuria. Musculoskeletal: Positive for joint swelling, arthralgias and muscle stiffness in the morning. Negative for myalgias. Skin: Negative for rash. Neurological: Negative for numbness and headaches. Endo/Heme/Allergies: Does not bruise/bleed easily. Psychiatric/Behavioral: Negative for disturbed wake/sleep cycle. The patient is not nervous/anxious. I agree Hal Diamond MD Chief of Dermatology [facility] documented in this encounter Plan of Treatment Upcoming Encounters Date Type Department Care Team (Late st Contact Info) Description 07/12/2024 11:[address] [facility] Endocrinology - [facility] [address] [place] [address] Dana Lee DO [address] [place] [phone] documented as of this encounter Visit Diagnoses Diagnosis Seborrheic keratosis, inflamed- Primary Inflamed seborrheic keratosis Personal history of other malignant neoplasm of skin documented in this encounter Discontinued Medications Medication Sig Discontinue Reason Start Date End Da te CALCIUM/CHOLECALCIFEROL (CALCIUM-VITAMIN D3 ORAL) Take by mouth daily. 02/01/2010 06/22/2012 documented as of this encounter Historical Medications * This list may reflect changes made after this encounter. UNABLE TO FIND Med Name: Zyflamead added in this encounter Care Teams Pouring Crane Operator Relationship Specialty Start Date End Date Brittani Gardiner MD [address] [place] [address] PCP - General 06/18/12 documented as of this encounter
--- OUTSIDE RECORDS SUMMARY | 2024-05-12 20:56 | XMS_ITS | Encounter Summary ---
Author Organization [facility] Address [address] [place] [address] Care Team Providers Care Fowl Blood Tester Name Role Phone Brittani Gardiner MD Primary Care Provider +1- [phone] Reason for Visit * Reason Comments Skin Exam Encounter Details Date Type Department Care Team (Late st Contact Info) Description 02/07/2015 15:[address] [facility] Dermatology 5th Floor [facility] [address] [place] [address] Hal Diamond MD [address] [place] [address] [place] [phone] History of basal cell cancer (Primary Dx) Social History Tobacco Use Types [...] history of other malignant neoplasm of skin-Z85.828[ICD-10-CM] documented in this encounter Patient Instructions * Patient Instructions* Bruce Stafford - 02/07/2015 15:43 EST SUN PROTECTION AND SUN SCREENS IF YOU OR YOUR CHILD IS GETTING A SUNTAN DESPITE USING SUNSCREEN, THEY ARE STILL GETTING TOO MUCH SUN! YOU WILL NEED TO USE COVER-UP CLOTHING AND KEEP THEM OUT OF THE SUN! Most of a person's lifetime sun exposure occurs before the age of 18. Skin cancer can be prevented.Protect yourself and your child from the sun. Avoiding the sun is the best protection. Repeated and prolonged exposure to sunlight greatly increases your risk of all types of skin cancer. In addition, chronic sun exposure is the major cause of wrinkles, spotty, and unhealthy appearing skin. It???s important to have a healthy and active lifestyle and we encourage you to continue this.However, some common sense guidelines will help to keep your skin safe. ?? Avoid the hot mid-day sun (10 AM to 2 PM). Try to schedule your outdoor activities for gravure printing machinist or early evening. ?? Make clothing a regular part of protection. Keep your shirt on - wear long sleeves and a wide brimmed hat. ?? Be especially careful when on the water, snow, or sand, as sunlight is reflected upwards from these surfaces. ?? Don???t forget your eyes and lips! Wear sunglasses - sun exposure increases your risk for cataracts. Wear lip balm with an SPF. ?? Make sure your children practice good sun protection. Early sun damage increases their risk of developing skin cancer. ?? Wear a sunscreen. We recommend using a sunscreen with both UVA and UVB protection and a SPF of at least 30. If you sunburn more easily or are in more intense sun, you will need a higher SPF. A ???waterproof?? sunscreen is usually good for about 2 hours, even if you???re swimming. A sunscreen should be reapplied every 2 hours and after swimming. Remember to put sunscreen on your ears and lips.There are many lip balms available with sunscreen. For more information about sun protection, skin cancer, and all skin topics, visit: www.skincancer.org and www.aad.org Sunscreens: Sunlight is made up of different wavelengths, some of which we can see as the various colors of therainbow, or ???visible?? light. UVA and UVB are invisible wavelengths, which penetrate into the skin and in excess amounts, cause injury. When the injury is severe, skin cells and become inflamed and we see sunburn. UVB causes sunburn more quickly than UVA and most sunscreens are targeted towards this wavelength. Tanning while wearing sunscreen may mean that primarily UVA light is reaching the skin. This is the same UVA light that is used in tanning beds and is responsible for causing wrinkles, brown spots and melanoma. For this reason, we recommend that you don???t use tanning beds and t hat you use sunscreen with both UVA and UVB protection. Some recommended sunscreen brands: --THERE ARE MANY GOOD SUNSCREEN BRANDS. MAKE SURE YOUR SUNSCREEN IS LABELED BROAD SPECTRUM AND HAS AN SPF 30 OR HIGHER. --For sensitive skin, babies, lupus, dermatomyositis, and porphyria cutanea tarda, look for sunscreens that contain Zinc Oxide & Titanium Dioxide. These are often labeled baby or sensitive. They will apply whiter but are more gentle. Some specific sunscreen brands: ?? Blue Lizard ?? Coppertone ?? Neutrogena ?? Bull Frog ?? Banana Boat ?? Aveeno ?? Tizo ?? Puja ROMERO Recommended resources for sun protective clothing and hats: ?? http://www.Contractor Copilot.nCino ?? http://www.Biztag.nCino ?? http://www.[employer]nCino documented in this encounter Progress Notes * Bruce Stafford - 02/07/2015 1534 EST Mohs Follow Up Note Chief Complaint Patient presents with ??? Skin Exam SUBJECTIVE Estela is approximately 4 months status post Mohs surgery as noted above and she returns today for follow up. She has no concerns about the surgical site and notes that it has healed up nicely. She denies a history of new or changing skin lesions and has no other concerns in regards to her skin except for a skin colored bump on the left upper lip, present for many years and unchanging. For full Medical, Surgical, Family, and Social histories as well as Review of Systems, Medications and Allergies please see those sections of this encounter in the electronic chart which I have personally reviewed. OBJECTIVE There is a well healed, soft supple rotation flap with minimal surrounding neovascularization on the left nasal ala without nodularity, ulceration or other concerning signs of recurrence. There are no cutaneous lesions worrisome for malignancy. -on the left upper cutaneous lip there is a skin colored 4 mm papule ASSESSMENT/PLAN 1. History of basal cell carcinoma of the left nasal ala. Patient is well healed with no evidence of recurrence following Mohs surgery and rotation flap repair. - Continue aggressive sun protection, wearing clothing, a wide-brimmed hat and high SPF sunscreen on areas that can't be covered. Regular skin surveillance with intermittent self skin exams recommended, watching for any new or changing skin lesions or ugly ducklings. 2. Intradermal nevus vs seborrheic keratosis on the left upper cutaneous lip, reassuring that it has been present for years and unchanging - Will elect to monitor clinically and she will let us know if changing or bleeding for biopsy -Follow up as scheduled for skin check Bruce Stafford MD 02/07/2015 15:34 Attestation statement: I saw and examined the patient with the resident/fellow. I agree with the findings and plan of care documented in the resident's/fellow's note. Hal Diamond MD Chief of Dermatology [facility] * Missy Keenan - 02/07/2015 9566 EST Review of Systems Constitutional: Negative for fever, [...] for sleep disturbance. The patient is nervous/anxious. Missy Keenan 02/07/2015 15:07 documented in this encounter Plan of Treatment Upcoming Encounters Date Type Department Care Team (Late st Contact Info) Description 07/12/2024 11:00 EDT Office Visit [facility] End[facility]inology [facility] [address] [place] [address] Dana Lee DO [address] [place] [phone] documented as of this encounter Visit Diagnoses Diagnosis History of basal cell cancer- Primary Personal history of other malignant neoplasm of skin documented in this encounter Care Teams Fowl Blood Tester Relationship Specialty Start Date End Date Brittani Gardiner MD [address] [place] [address] PCP - General 06/18/12 documented as of this encounter
--- OUTSIDE RECORDS SUMMARY | 2024-05-12 20:56 | XMS_ITS | Encounter Summary ---
Author Organization [facility] Address [address] [place] [address] Care Team Providers Care Vessel Slag Worker Name Role Phone Brittani Gardiner MD Primary Care Provider +1- [phone] Reason for Visit * Reason Onset Date Comments Appointment Related 07/16/2023 Encounter Details Date Type Department Care Team (Late st Contact Info) Description 07/16/2023 Telephone [facility] Endocrinology - [address] [address] Bone, Rheum Fellow, DO Appointment Related Social History Tobacco Use Types [...] 08/21/2017 13:49 EDT documented in this encounter Miscellaneous Notes * Telephone Encounter - Charlotte Sparks - 07/16/2023 1517 EDT Left voicemail to schedule Follow Up appointment with any Osteo Provider following provider change guidelines. Patient last saw Bone Rheum Fellow. Patient is due anytime after 06-11-2024 Recall Letter Sent. Recall . documented in this encounter Plan of Treatment Upcoming Encounters Date Type Department Care Team (Late st Contact Info) Description 07/12/2024 11:00 EDT Office Visit [facility] Endocrinology - [address] [address] Dana Lee DO [address] [place] [phone] documented as of this encounter Visit Diagnoses Not on filedocumented in this encounter Care Teams Vessel Slag Worker Relationship Specialty Start Date End Date Brittani Gardiner MD [address] [place] [address] PCP - General 06/18/12 documented as of this encounter
--- OUTSIDE RECORDS SUMMARY | 2024-05-12 20:56 | XMS_ITS | Referral Summary ---
Author Organization [facility] Address [address] [place] [address] Care Team Providers Care Attending Ambulatory Care Name Role Phone Brittani Gardiner MD Primary Care Provider +1- [phone] Allergies No known active allergies Medications UNABLE [...] basal cell carcinoma 02/04/2010 Overview (10/04/2014): Left oriental orthodox Left arm 2013 Left nose 2014 Social History Tobacco Use Types Packs/Day Years [...] on file Sexual Orientation Not on file Last Filed Vital Signs Vital Sign Reading [...] Body Mass Index 22.24 06/12/2023 1309 EDT Functional Status * Because of a physical, mental, or emotional condition, does this person have difficulty doing errands alone such as visiting a doctor's office or shopping? Answer Date of Assessment Author No 08/21/2017 13:49 EDT Mental Status * Because of a physical, mental, or emotional condition, does this person have serious difficulty concentrating, remembering, or making decisions? Answer Entry Date Author No 08/21/2017 13:49 EDT Plan of Treatment Upcoming Encounters Date Type Department Care Team (Late st Contact Info) Description 07/12/2024 11:00 EDT Office Visit [facility] Endocrinology - [address] [address] Dana Lee, DO [address] [place] [address] [address] [place] [id number] MEDICARE Member Subscriber Plan / Payer (Ef fective 2008-Present) Name:Estela Aguilera Member ID:[id number] Relation to Subscriber:Self Name:Estela Aguilera Subscriber ID:[id number] Payer ID:[id number] Group ID:Not on file Type:Medicare GL Address: [place] [phone] [facility] Care Teams Attending Ambulatory Care Relationship Specialty Start Date End Date Brittani Gardiner MD [address] [place] [address] PCP - General 06/18/12
--- OUTSIDE RECORDS SUMMARY | 2024-05-12 20:56 | XMS_ITS | Encounter Summary ---
Author Organization [facility] Address [address] [place] [address] Care Team Providers Care Marketing Planner Name Role Phone Brittani Gardiner MD Primary Care Provider +1- [phone] Reason for Visit * Reason Comments Skin Exam spot on chest, left brow, hx multiple BCC Encounter Details Date Type Department Care Team (Late st Contact Info) Description 08/21/2017 14:00 EDT Office Visit [facility] Dermatology 5th Floor [facility] [address] [place] [address] Hal Diamond MD [address] [place] [address] [place] [phone] History of skin cancer (Primary Dx) Discharge Disposition: Auto Discharge Social [...] documented in this encounter Discharge Diagnoses Diagnosis Z12.83 Encounter for screening for malignant neoplasm of skin-Z12.83[ICD-10-CM] Z08 Encntr for follow-up exam after trtmt for malignant neoplasm-Z08[ICD-10-CM] Z85.828 Personal history of other malignant neoplasm of skin-Z85.828[ICD-10-CM] documented in this encounter Discharge Disposition Disposition Code Departure Means Destination Auto Discharge documented in this encounter Progress Notes * Talita Tracey - 08/21/2017 1400 EDT Review of Systems Constitutional: Negative for fatigue, fever and unexpected weight change. HENT: Negative for mouth sores. Eyes: Negative for pain. Respiratory: Negative for cough and shortness of breath. Cardiovascular: Negative for chest pain and palpitations. Gastrointestinal: Negative for abdominal pain, blood in stool, constipation, diarrhea, nausea and vomiting. Genitourinary: Negative for dysuria, frequency and hematuria. Musculoskeletal: Positive for joint swelling. Negative for myalgias, arthralgias and muscle stiffness in the morning. Skin: Negative for rash. Neurological: Negative for numbness and headaches. Endo/Heme/Allergies: Does not bruise/bleed easily. Psychiatric/Behavioral: Negative for sleep disturbance. The patient is not nervous/anxious. Talita Tracey 08/21/2017 13:40 * Vasiliy Samano MD - 08/21/2017 1400 EDT Dermatology Outpatient Visit Note S: Estela Aguilera is a 72 y.o. here for follow up with history of skin cancer. Patient reports no new lesions that they are concerned about for skin cancer. Patient with no additional skin concerns or complaints. See documentation in [facility] for medical, surgical, social and family history, and review of systems,which I reviewed at this visit. O: Physical Exam: Cutaneous full body examination including the hair, scalp, face, eyelids, lips, neck, chest, back, abdomen, all four extremities, hands, feet, digits and nails was performed.The examination was normal with the addition of the following comments: There were no lesions suspicious for malignancy. Central chest with waxy stuck on hyperkeratotic papule c/w SK. Well healed scar on L forearm, no evidence of recurrence. A: History of NMSC No evidence of recurrence and no concerning lesions today for skin cancer P: Patient was reassured Sunscreen and sun avoidance discussed Patient should perform regular self exam Regular followup as scheduled to detect new lesions Instruction given on what to look for in terms of worrisome lesions Follow-up: 12 months or in the interim Patient told to call us with any concerning lesions prior to next visit Vasiliy Samano MD 12/19/2016 13:55 Attestation statement: I saw and examined the patient with the resident/fellow. I agree with the findings and plan of care documented in the resident's/fellow's note. Hal Diamond MD Chief of Dermatology [facility] documented in this encounter Plan of Treatment Upcoming Encounters Date Type Department Care Team (Late st Contact Info) Description 07/12/2024 11:00 EDT Office Visit [facility] Endocrinology - [address] [address] Dana Lee, [address] [place] [phone] documented as of this encounter Visit Diagnoses Diagnosis History of skin cancer- Primary Personal history of other malignant neoplasm of skin documented in this encounter Care Teams Marketing Planner Relationship Specialty Start Date End Date Brittani Gardiner MD [address] [place] [address] PCP - General 06/18/12 documented as of this encounter
--- OUTSIDE RECORDS SUMMARY | 2024-05-12 20:56 | XMS_ITS | Encounter Summary ---
Author Organization [facility] Address [address] [place] [address] Care Team Providers Care Tire Buster Name Role Phone rBittani Gardiner MD Primary Care Provider +1- [phone] Reason for Visit * Reason Onset Date Comments Results 07/13/2023 Encounter Details Date Type Department Care Team (Late st Contact Info) Description 07/13/2023 Telephone [facility] Rheumatology & Immunology - [facility] [address] [place], [place] [phone] Catina Goff MD [address] [place], [place] [phone] Results Social History Tobacco Use Types Packs/Day Years [...] encounter Miscellaneous Notes * Telephone Encounter - Catina Goff MD - 07/13/2023 1137 EDT I called Estela to review her blood work. Overall looked very good, normal calcium, TSH and PTH. Hervitamin D was a little low (25) and I recommended increasing her vitamin D supplement to 1000 IU daily. She will get her Reclast infusion through [facility], this has already been ordered. documented in this encounter Plan of Treatment Upcoming Encounters Date Type Department Care Team (Late st Contact Info) Description 07/12/2024 11:00 EDT Office Visit [facility] Endocrinology - [address] [address] Dana Lee DO [address] [place] [phone] documented as of this encounter Visit Diagnoses Not on filedocumented in this encounter Care Teams Tire Buster Relationship Specialty Start Date End Date Brittani Gardiner MD [address] [place], [place] [phone] PCP - General 06/18/12 documented as of this encounter
--- OUTSIDE RECORDS SUMMARY | 2024-05-12 20:56 | XMS_ITS | Encounter Summary ---
Author Organization [facility] Address [address] [place] [address] Care Team Providers Care Supervisor Electronics Testing Name Role Phone Brittani Gardiner MD Primary Care Provider [phone] Reason for Visit * Reason Comments Basal Cell Carcinoma left forearm Encounter Details Date Type Department Care Team (Late st Contact Info) Description 11/09/2013 13:00 EDT Office Visit [facility] Dermatology 5th Floor [facility] [address] [place] [address] Mae Diamond MD [address] [place] [address] [place] [phone] Basal cell carcinoma of skin of upper limb, including shoulder (Primary Dx) Social History Tobacco Use Types [...] as of this encounter Discharge Diagnoses Diagnosis 173.61 BASAL CELL CARCINOMA OF SKIN OF UPPER LIMB, INCLUDING SHOULDER[ICD-9-CM] documented in this encounter Patient Instructions * Patient Instructions* Maria De Jesus Stafford 11/09/2013 12:47 EDT [facility] MOHS SURGERY UNIT CARE FOLLOWING YOUR SKIN SURGERY ACTIVITY: ?? If you have sutures (stitches), avoid strenuous activities until your sutures are removed ?? Walking is an excellent light activity during recovery. Running and weightlifting are not. ?? If your surgery was on your head or neck, elevate your head with pillows when you lie down, and do not bend over to hot die picker objects or tie your shoes. BATHING: ?? Keep the area of your surgery dry for the first 24 hours. ?? After 24 hours, you may shower. Remove your bandage, and replace it after the shower. If you bathe in a tub, the bath should be brief. DISCOMFORT: ?? Do not use aspirin, products containing aspirin, ibuprofen (AdvilTM or MotrinTM), or naproxen (AleveTM) for five days after your surgery, unless approved by your physician. ?? To relieve discomfort, you may take acetaminophen (for example, TylenolTM or Extra-Strength TylenolTM) as directed. If your doctor has given you a prescription for Tylenol with codeine, Dilaudid or Percocet, you may use this as directed. BLEEDING, BRUISING, AND SWELLING: ?? It is normal for your wound to ooze a small amount of blood and stain the dressing. ?? Expect bruising and swelling in the area of your surgery to be the most noticeable 48 to 72 hours after surgery. Bruising and swelling usually begin to lessen 4 to 5 days after surgery. ?? You may minimize swelling by sleeping with your head elevated on several pillows. ?? If the swelling worsens rapidly or becomes increasingly tender, contact your physician. ?? If your wound bleeds enough that the blood heavily soaks through to the outside of your bandage,do the following 1) Remove the bandage 2) If the site is slowly bleeding, but not gushing blood, then place a clean moist gauze on the wound and hold continuous pressure for 15 to 20 minutes. 3) Remove the gauze carefully, and if the bleeding has stopped, redress the wound with the suppliesgiven to you at the time of your surgery. 4) If the bleeding does not stop or if the bleeding is severe, renew pressure and contact your physician for further instructions. If there is substantial bleeding that does not resolve with pressure, please proceed to the nearest emergency room or call 911 for assistance. INFECTION: ?? It is normal for your wound to be slightly sore and pink. ?? If the area becomes increasingly tender, red or warm, or if you develop fever and chills, then contact your physician. DIETARY RESTRICTIONS: ?? If your surgery involved your lips or mouth, avoid hot liquids and foods for the first two to three hours after surgery. Eat soft foods and be careful when brushing your teeth until sutures are removed. ?? If you are a smoker try to limit your smoking as much as possible around the time of surgery. DAILY WOUND CARE: ?? Always wash your hands with soap and water before your daily wound care. ?? Gently remove your bandage 24 hours after surgery. Then change the dressing each day or wheneverit becomes wet, according to these instructions: 1) Gently clean the area with cotton swabs dipped in warm soapy water. 2) As you clean the area, remove all crusty material. If you cannot easily remove the crust, soak the area with wet gauze for 15 to 20 minutes. Do not let thick crusts or scabs form. Your wound will heal faster if you keep it clean and moist. 3) After cleaning the wound, pat the area dry with clean gauze or cotton-tipped swabs. 4) Next, use a clean cotton swab to apply bacitracin ointment or petroleum jelly. 5) Cover the area with nonstick gauze (Telfa). Secure the dressing with tape. WHEN TO CONTACT YOUR PHYSICAN: ?? Your wound continues to bleed after you have applied firm pressure for 20 minutes. ?? Acetaminophen has not relieved your discomfort. ?? Your wound becomes increasingly sore, tender, red, or warm. ?? Your surgery site rapidly swells. CONTACT INFORMATION: To reach the airconditioning plant operator physician: During office hours: 8:00 am - 5:00 PM Thursday through Thursday Call: [phone] Ask to speak with a surgery nurse After hours: Call [phone] for the [facility] surgeon airconditioning plant operator. WEEKENDS and HOLIDAYS call: [phone] for the Mohs surgeon on-call documented in this encounter Progress Notes * Brandi Roca - 11/09/2013 1303 EDT Patient Education Topic: Wound Care Method: Handout and Verbal Taught to: Patient Barriers: None Outcomes: independent Signature: Brandi Roca 11/09/2013 * Maria De Jesus Stafford - 11/09/2013 1244 EDT LINEAR EXCISION PROCEDURE NOTE PATIENT INFORMATION: Nereyda Aguilera [id number] 1945 DATE OF PROCEDURE: 11/09/2013 SURGEON: Mae Diamond MD DIE REAMER: PILO Salas; Maria De Jesus Stafford MD PREOPERATIVE DIAGNOSIS: Basal cell carcinoma, nodular LOCATION: left forearm LESION SIZE: 0.8 x 0.8 cm MARGINS PER SIDE: 0.3 cm TOTAL EXCISION DIAMETER: 1.4 x 1.4 cm INDICATIONS: The indication, risks, benefits and alternatives to this procedure were discussed in detail with the patient and all questions were answered. The patient had no contraindications to surgery with local anesthesia. Informed consent was obtained in writing. PROCEDURE: Patient position: seated Anesthesia: 1% lidocaine with epinephrine 1:100,000 local infiltration Prep: Povodine Iodine The patient was brought to the operative suite. The lesion was identified, prepped and draped in the usual sterile fashion. Following complete anesthesia, the skin was incised in a fusiform fashion to the level of the subcutis with a number 15 surgical blade. The wound was undermined in all directions with care to avoid functionally important nerves and vessels. Hemostasis was achieved with spot electrocoagulation. The wound edges were approximated with 4.0 Monocryl (poliglecaprone 25) buried interrupted sutures at the level of the dermis and subcutis. The epidermis was approximated with 5.0 Prolene (polypropylene). The final wound length was 4.4 centimeters. The wound edges were cleansed with peroxide and a sterile pressure dressing was applied over telfa and petrolatum. Verbal and written wound care instructions were given. The patient tolerated the procedure well and left the operating suite in excellent condition. The surgical specimen was submitted to pathology for histologic evaluation. POSTOPERATIVE DIAGNOSIS: Basal cell carcinoma FINAL PROCEDURE: Excision and Linear Repair BLOOD LOSS: minimal OPERATIVE TIME: 30 minutes COMPLICATIONS: none NOTE: none Maria De Jesus Stafford MD 11/09/2013 12:47 documented in this encounter Plan of Treatment Upcoming Encounters Date Type Department Care Team (Late st Contact Info) Description 07/12/2024 11:00 EDT Office Visit [facility] Endocrinology - [address] [place] [address] Dana Lee, DO [address] [place] [address] documented as of this encounter Procedures Procedure Name Priority Date/Time Associated Diagnosis Comments SURGICAL PATHOLOGY Routine 11/09/2013 15 :16 EDT documented in this encounter Results * SURGICAL PATHOLOGY (11/09/2013 15:16 EDT) Pathology Report: SURGICAL PATHOLOGY REPORT Reports generated via electronic interface contain original data; however they are lacking the format of the original report. Caution should be taken when reading/interpreti ng unformatted reports. Name: ? LIZETH NEREYDA S ? Accession #: ? [id number] ? : ? 1945 (Age: 68) ??F ? Collect Date: ? 11/09/2013 ? Location: ? DERM ? Receive Date: ? 11/09/2013 ? Provider: MAE DIAMOND MD Copy to: ? Final Pathologic Diagnosis: SKIN OF ARM, LEFT, EXCISION: - Residual basal cell carcinoma, nodular type. - Margins of excision negative. - Lesion measures approximately 0.4 mm to the deep margin. - Lesion measures approximately 2.0 mm to the nearest peripheral margin. - Epidermal reparative change and dermal scar. - Seborrheic keratosis, incidental. Document reviewed and electronically signed by: JONG CINTRON MD Report ??Date: 11/10/2013 13:11 By the signature above, the attending physician certifies that he/she has personally conducted a gross and/or microscopic examination of the described specimens and rendered or confirmed the above diagnosis. Specimen(s) Received: Left arm excision Clinical History: Basal cell carcinoma, arm; clinical diagnosis code: ??173.61 Gross Description: ? Received in formalin labelled with proper patient identification (initials W, R) and L arm is an unoriented elliptical excision of choe-white focally scaled skin (3.9 x 1.3 cm and is excised to a depth of 0.3 cm). The margins are inked. The specimen is serially sectioned and entirely submitted as 1 through 4 central sections and 5 tips, reverse en face. Brittani Delaney 11/09/2013 03:58 PM End of Report [facility] 11/09/2013 15:1 6 EDT 11/09/2013 15:16 EDT us Mae Diamond MD PATHOLOGY ORDERABLES Vianca l Result [facility] [address] [place] [address] documented in this encounter Visit Diagnoses Diagnosis Basal cell carcinoma of skin of upper limb, including shoulder- Primary documented in this encounter Care Teams Supervisor Electronics Testing Relationship Specialty Start Date End Date Brittani Gardiner MD [facility] PROFESSIONAL [employer] [address] [place] [address] PCP - General 06/18/12 documented as of this encounter
--- OUTSIDE RECORDS SUMMARY | 2024-05-12 20:57 | XMS_ITS | Encounter Summary ---
Author Organization [facility] Address [address] [place] [address] Care Team Providers Care Malt House Loader Name Role Phone Madi Connell MD Primary Care Provider [phone] Encounter Details Date Type Department Care Team (Late st Contact Info) Description 10/06/2004 Office Visit [facility] [address] [place] [address] Arnold Jacinto, PA-C [address] [employer], [address] [place] [phone] Social History Tobacco Use Types Packs/Day Years Used Date Smoking Tobacco: Never Assessed Comments Unknown Sex and Gender Information Value Date Recorded Sex Assigned at Not on file Legal Sex Female 18:35 EST Gender Identity Not on file Sexual Orientation Not on file documented as of this encounter Progress Notes * Arnold Jacinto Jr., PA - 05/31/2009 0014 EST Department - Physician Summary Registration Date/Time: 10/06/2004 11:39 Arrived- By private vehicle. Historian- patient. HISTORY OF PRESENT ILLNESS Chief Complaint- Injury to the right ring finger and right 5th (little) finger. The injury happenedjust prior to arrival. She sustained a crush injury. Occurred at home. caught between table leaf and car Patient is experiencing moderate pain. No other injury. REVIEW OF SYSTEMS The patient sustained a laceration. No weakness, tingling, numbness or foreign body. PAST HISTORY See nurses notes. The patient's dominant hand is the right. Last tetanus immunization was more than5 years ago. Medications: None. Allergies: No known drug allergies. ADDITIONAL NOTES The nursing notes have been reviewed. PHYSICAL EXAM Appearance: Alert. No acute distress. VitalSigns: The vital signs have been reviewed. Extremities: Tip of right little finger: 1.0 cm laceration (ecchymosis to finger tips 4th and 5th).No subungual hematoma of right little finger, right little fingernail avulsion or finger tip amputation, exposed bone of right little finger or loss of the nail bed of right little finger. No wrist injury. Extremities otherwise negative. Neuro, Vascular and Tendons: Vascular status intact. Sensation intact. Motor intact. Tendon function intact. PROGRESS AND PROCEDURES Digital Nerve Block: Digital nerve block performed on the right little finger. Web space and dorsalapproach utilized. Landmarks identified. Skin prepped. Total volume of 1 mL 1% Lidocaine infiltrated via two punctures with a 27-gauge needle. Patient cooperative during procedure. No complications encountered. Excellent anesthesia achieved. Laceration Repair: Location: right little finger. Length: 1 cm Complexity: simple. Wound depth/shape- linear. Anesthesia provided by digital block using 1% lidocaine. Wound cleansed and irrigated with normal saline. Debrided. Closure of superficial layer: 5-0 Prolene (2 sutures). E.D. Course: Patient is stable. Patient/family counseled. Disposition: Discharged home in good condition. Condition: good. CLINICAL IMPRESSION Laceration to right little finger. Crush injury to right ring finger and right little finger. INSTRUCTIONS Apply ice intermittently (15-20 minutes at a time 4-6 times daily). Elevate affected areas above chest level. OTC Medications: Motrin (available over the counter): take according to label instructions. Follow-up: Follow up with your doctor 7-10 days for suture removal (Electronically signed by Corry Castro 10/06/2004 15:25) Department - Nursing Summary Registration Date/Time: 10/06/2004 11:39 TRIAGE Initial Assessment Triage time 11:40 --1141 Anaid Bolden, Acuity: LEVEL 4. BP: 139 / 76 HR: 54 RR: 16 Temp: 36.4 tympanic --1142 Anaid Bolden, Medications None. --1142 Anaid Bolden, Allergies No known drug allergies. --1142 Anaid Bolden, History Chief Complaint: (crush digit injury of right hand pinky/ring digit distal). Arrived by private vehicle. Historian: patient. --1141 Anaid Bolden, This occurred just prior to arrival. Pain level now:05/09. Treatment MACHINE ENGRAVER: Ice. PAST HX: Negative. --114 Anaid Bolden, (+ color, sensation, denies numbness, noted + eccoymoses at tip of both digits.). --1143 Anaid Bolden, (Reports crush injury between table leaf and car as table was being loaded.). --114 Anaid Bolden, PAST HX: Tetanus status: more than 5 years ago. --114 Anaid Bolden, NURSING PROGRESS NOTES Progress Patient identifiers checked. Call light placed in reach. Side rails up x 1. Bed placed in lowest position. Brakes of bed on. --1148 Soledad Horner Td (TETANUS and DIPHTHERIA) 0.5 mL lot #[id number] exp date IM left deltoid. --1219 Taya Hall R.N. DISPOSITION / DISCHARGE Condition at departure: improved. No barriers to learning present. Discharge instructionsreviewed with the patient. Provided and reviewed written instructions for wound care. Reviewed referral to family practice. Patient verbalized understanding. The patient was discharged home. The patient left the Emergency Department ambulatory and via taxi. --1219 Za Richard Donna Chicoine R.N. Locked/Released at 10/06/2004 12:19 by Taya Hall R.N. documented in this encounter Plan of Treatment Upcoming Encounters Date Type Department Care Team (Late st Contact Info) Description 07/12/2024 11:00 EDT Office Visit [facility] Endocrinology - [address] [id number] Dana Lee, DO [address] [place] [address] documented as of this encounter Visit Diagnoses Not on filedocumented in this encounter Care Teams Malt House Loader Relationship Specialty Start Date End Date Madi Connell MD [address] [address] PCP - General 02/02/09 06/17/12 documented as of this encounter
--- OUTSIDE RECORDS SUMMARY | 2024-05-12 20:57 | XMS_ITS | Encounter Summary ---
Author Organization [facility] Address [address] [place] [address] Care Team Providers Care Buckle Inspector Name Role Phone Unavailable Primary Care Provider Unavailabl e Encounter Details Date Type Department Care Team (Late st Contact Info) Description 02/11/2006 11:23 EST Hospital Encounter [facility] [address] [place] [address] Odette Cox MD [address] [place] [phone] Social History Tobacco Use Types Packs/Day Years [...] Info) Description 07/12/2024 11:00 EDT Office Visit [facility] Endocrinology - [address] [place], [place] [id number] Dana Lee, DO [address] [place] [address] documented as of this encounter Visit Diagnoses Not on filedocumented in this encounter
--- OUTSIDE RECORDS SUMMARY | 2024-05-12 20:57 | XMS_ITS | Encounter Summary ---
Author Organization [facility] Address [address] [place] [address] Care Team Providers Care Post Adoption Coordinator Name Role Phone Tree Daniels MD Primary Care Provider [phone] Encounter Details Date Type Department Care Team (Late st Contact Info) Description 06/21/2004 Results Only [facility] - [facility] [address] [place] [address] Tree Daniels MD [address] [id number] Social History Tobacco Use Types Packs/Day Years [...] Info) Description 07/12/2024 11:00 EDT Office Visit [facility] Endocrinology - [address] [address] Dana Lee, [address] [place] [address] documented as of this encounter Procedures Procedure Name Priority Date/Time Associated Diagnosis Comments CYTOPATHOLOGY Routine 06/21/2004 0:00 EST documented in this encounter Results * CYTOPATHOLOGY (06/21/2004 0:00 EST) Pathology Report: CYTOPATHOLOGY REPORT Reports generated via electronic interface contain original data; however they are lacking the format of the original report. Caution should be taken when reading/interpreti ng unformatted reports. Name: ? NEREYDA AGUILERA ? Accession #: ? [id number] : ? 1945 (Age: 58) ??F ?Collect Date: ? 06/21/2004 Location: ? [facility] ? Receive Date: ? 06/24/2004 Provider: ?TREE DANIELS MD Copy to: ? Specimen/Source: ?ThinPrep Pap Test, Endocervix Last Menstrual Period: ? 15 years ago Other: ? HPVA - HPV testing requested if ASC-US on the current ThinPrep Pap test. ? SPECIMEN ADEQUACY ? Satisfactory for Evaluation - assessment of transformation zone component not applicable ( e.g. atrophy, vaginal sample, hysterectomy) GENERAL CATEGORIZATION ? Negative for Intraepithelial Lesion or Malignancy ? Document reviewed and electronically signed by: ? JANIYA Cortes(ASCP) ? Report Date: ??06/26/2004 08:10 End of Report [facility] 06/21/2004 06/24/2004 us Tree Daniels MD PATHOLOGY ORDERABLES Final R esult [facility] [address] [place] [address] documented in this encounter Visit Diagnoses Not on filedocumented in this encounter Care Teams Post Adoption Coordinator Relationship Specialty Start Date End Date Tree Daniels MD [address] [address] PCP - General 02/02/09 06/17/12 documented as of this encounter
--- OUTSIDE RECORDS SUMMARY | 2024-05-12 20:57 | XMS_ITS | Encounter Summary ---
Author Organization [facility] Address [address] [place] [address] Care Team Providers Care Door Fitter Name Role Phone Unavailable Primary Care Provider Unavailabl e Encounter Details Date Type Department Care Team (Latest Contact Info) Description 10/06/2004 11:39 EDT - 10/06/2004 11:59 EDT Hospital Encounter [facility] Emergency Department - [address] [place] [address] [place] [address] Emergency, Default, MD Discharge Disposition: Home or Self Care Social History Tobacco Use Types Packs/Day Years Used Date Smoking Tobacco: Never Assessed Comments Unknown Sex and Gender Information Value Date Recorded Sex Assigned at Not on file Legal Sex Female 18:35 EST Gender Identity Not on file Sexual Orientation Not on file documented as of this encounter Discharge Disposition Disposition Code Departure Means Destination Home or Self Care documented in this encounter Plan of Treatment Upcoming Encounters Date Type Department Care Team (Late st Contact Info) Description 07/12/2024 11:00 EDT Office Visit [facility] Endocrinology - [address] [address] Dana Lee, DO [address] [place] [phone] documented as of this encounter Visit Diagnoses Not on filedocumented in this encounter
--- OUTSIDE RECORDS SUMMARY | 2024-05-12 20:57 | XMS_ITS | Encounter Summary ---
Author Organization [facility] Address [address] [place] [address] Care Team Providers Care Favor Maker Name Role Phone Tree Daniels MD Primary Care Provider [phone] Encounter Details Date Type Department Care Team (Late st Contact Info) Description 07/24/2005 Results Only [facility] - Maple conversion [address] [place] [address] Tree Daniels MD [address] [address] Social History Tobacco Use Types Packs/Day Years [...] Info) Description 07/12/2024 11:00 EDT Office Visit [facility] Endocrinology - [address] [address] Dana Lee, [address] [place] [address] documented as of this encounter Procedures Procedure Name Priority Date/Time Associated Diagnosis Comments CYTOPATHOLOGY Routine 07/24/2005 0:00 EDT documented in this encounter Results * CYTOPATHOLOGY (07/24/2005 0:00 EDT) Pathology Report: CYTOPATHOLOGY REPORT Reports generated via electronic interface contain original data; however they are lacking the format of the original report. Caution should be taken when reading/interpreti ng unformatted reports. Name: ? NEREYDA AGUILERA ? Accession #: ? [id number] : ? 1945 (Age: 59) ??F ?Collect Date: ? 07/24/2005 Location: ? [facility] ? Receive Date: ? 07/28/2005 Provider: ?TREE DANIELS MD Copy to: ? Specimen/Source: ?ThinPrep Pap Test, Vagina/Cervix, processed on [employer] ThinPrep Imaging System, with manual evaluation Last Menstrual Period: ? Menstrual/Pregnanc y Status: ? Menopausal Other: ? HPVA - HPV testing requested if ASC-US on the current ThinPrep Pap test.: R/O CA ? SPECIMEN ADEQUACY ? Satisfactory for Evaluation - assessment of transformation zone component not applicable ( e.g. atrophy, vaginal sample, hysterectomy) - scant squamous epithelial component GENERAL CATEGORIZATION ? Negative for Intraepithelial Lesion or Malignancy ? Document reviewed and electronically signed by: ? Liv Smipson, SCT(ASCP) ? Report Date: ??07/30/2005 13:20 End of Report [facility] 07/24/2005 07/28/2005 us Tree Daniels MD PATHOLOGY ORDERABLES Final R esult [facility] [address] [place] [address] documented in this encounter Visit Diagnoses Not on filedocumented in this encounter Care Teams Favor Maker Relationship Specialty Start Date End Date Tree Daniels MD [address] [address] PCP - General 02/02/09 06/17/12 documented as of this encounter
[2024-05-12 23:18] LABS: ALT 31 U/L (14-59); AST 23 U/L (15-37); Albumin 4.3 g/dL (3.4-5.0); Alkaline Phosphatase 60 U/L (46-116); Anion Gap 8.4 mmol/L (3-11); BUN 24 mg/dL (7-18); Bilirubin, Total 0.31 mg/dL (0.2-1.0); CO2 28.6 mmol/L (21.0-32.0); CREATININE 0.8 mg/dL (0.55-1.02); Calcium 9.9 mg/dL (8.5-10.1); Calculated LDL 179 mg/dL (<100); Chloride 102 mmol/L (98-107); Cholesterol 272 mg/dL (<200); Estimated GFR 74.44 (mL/min/1.73m2); Glucose 88 mg/dL (74-106); HDL Cholesterol 73 mg/dL (40-60); Sodium 139 mmol/L (136-145); Total Protein 7.9 g/dL (6.4-8.2); Triglyceride 104 mg/dL (<150); Vitamin D 25 Total 36.2 ng/mL (30-100)
[2024-05-12 23:35] LABS: COMMENT (LAB VIEW ONLY) 23.79 mg/dL; Microalb ug/mg Crea 53.4 ug/mg Cr
== END 2024-05-12 20:53 | disposition home or self-care (01) ==
LOC: NCHCN 20:52
PROVIDERS: Visit Provider Family Medicine
DX: I10 Essential (primary) hypertension (principal); E55.9 Vitamin D deficiency, unspecified
CPT/HCPCS: 80053; 80061; 82306; 82043; 82570

== ENCOUNTER 2024-06-14 12:39 | Outpatient (REF) | payer MEDICARE, SELFPAY ==
[2024-06-14 15:00] LABS: Anion Gap 3.9 mmol/L (3-11); BUN 23 mg/dL (7-18); CO2 32.1 mmol/L (21.0-32.0); CREATININE 0.7 mg/dL (0.55-1.02); Calcium 9.7 mg/dL (8.5-10.1); Chloride 104 mmol/L (98-107); Estimated GFR 87.37 (mL/min/1.73m2); Glucose 101 mg/dL (74-106); Potassium 5.1 mmol/L (3.5-5.1); Sodium 140 mmol/L (136-145)
== END 2024-06-14 12:40 | disposition home or self-care (01) ==
LOC: NCHCN 12:39
PROVIDERS: Visit Provider Family Medicine
DX: I10 Essential (primary) hypertension (principal)
CPT/HCPCS: 80048

== ENCOUNTER 2024-08-08 14:22 | Outpatient (REF) | payer MEDICARE, SELFPAY ==
[2024-08-08 21:32] LABS: Abs Immature Grans 0.05 10^3/uL (0.0-0.06); Absolute Basophil Count 0.04 10^3/uL (0.0-0.2); Absolute Eosinophil Count 0.17 10^3/uL (0.0-0.7); Absolute Monocyte Count 1.08 10^3/uL (0.1-0.8); Absolute Neutrophil Count 6.51 10^3/uL (1.2-6.7); Basophils % 0.4 %; Eosinophils % 1.6 %; HCT 39.1 % (36.0-46.0); HGB 13.2 g/dL (11.2-15.7); Immature Grans % 0.5 %; MCH 30.6 pg (27.0-33.0); MCHC 33.8 % (32.0-36.0); MCV 91 fL (80-95); Neutrophils % 60.5 %; RBC 4.31 10^6/uL (3.93-5.22); RDW 13.7 % (11.7-14.6); RDW-SD 46.5 fL; WBC 10.75 10^3/uL (4.4-10.8)
[2024-08-08 21:42] LABS: ALT 45 U/L (14-59); AST 25 U/L (15-37); Albumin 3.7 g/dL (3.4-5.0); Alkaline Phosphatase 124 U/L (46-116); Anion Gap 2.5 mmol/L (3-11); BUN 46 mg/dL (7-18); Bilirubin, Total 0.5 mg/dL (0.2-1.0); CO2 30.5 mmol/L (21.0-32.0); CREATININE 1.2 mg/dL (0.55-1.02); Calcium 8.7 mg/dL (8.5-10.1); Chloride 97 mmol/L (98-107); Estimated GFR 45.76 (mL/min/1.73m2); Glucose 111 mg/dL (74-106); Lipase 19 U/L (<78); Potassium 3.8 mmol/L (3.5-5.1); Sodium 130 mmol/L (136-145); Total Protein 7.3 g/dL (6.4-8.2)
== END 2024-08-08 14:23 | disposition home or self-care (01) ==
LOC: NCHCN 14:22
PROVIDERS: PCP Family Medicine; Visit Provider Family Medicine
DX: K52.9 Noninfective gastroenteritis and colitis, unspecified (principal)
CPT/HCPCS: 80053; 83690; 85025

== ENCOUNTER 2024-08-16 15:57 | Outpatient (REF) | payer MEDICARE, SELFPAY ==
[2024-08-16 15:23] LABS: Abs Immature Grans 0.01 10^3/uL (0.0-0.06); Absolute Basophil Count 0.06 10^3/uL (0.0-0.2); Absolute Eosinophil Count 0.29 10^3/uL (0.0-0.7); Absolute Lymphocyte Count 2.93 10^3/uL (1.2-3.4); Absolute Monocyte Count 0.66 10^3/uL (0.1-0.8); Absolute Neutrophil Count 4.26 10^3/uL (1.2-6.7); Basophils % 0.7 %; Eosinophils % 3.5 %; HCT 35.8 % (36.0-46.0); HGB 11.8 g/dL (11.2-15.7); Immature Grans % 0.1 %; Lymphocytes % 35.7 %; MCH 30.2 pg (27.0-33.0); MCV 92 fL (80-95); MPV 10.4 fL (8.0-11.0); Platelet Count 389 10^3/uL (130-400); RBC 3.91 10^6/uL (3.93-5.22); RDW 13.1 % (11.7-14.6); RDW-SD 43.4 fL; WBC 8.21 10^3/uL (4.4-10.8)
[2024-08-16 16:11] LABS: ALT 23 U/L (14-59); AST 23 U/L (15-37); Albumin 3.5 g/dL (3.4-5.0); Alkaline Phosphatase 111 U/L (46-116); Anion Gap 8.5 mmol/L (3-11); BUN 14 mg/dL (7-18); Bilirubin, Total 0.3 mg/dL (0.2-1.0); CO2 27.5 mmol/L (21.0-32.0); CREATININE 0.8 mg/dL (0.55-1.02); Calcium 9.8 mg/dL (8.5-10.1); Chloride 102 mmol/L (98-107); Estimated GFR 73.98 (mL/min/1.73m2); Glucose 102 mg/dL (74-106); Potassium 4.8 mmol/L (3.5-5.1); Sodium 138 mmol/L (136-145); Total Protein 7.4 g/dL (6.4-8.2)
== END 2024-08-16 15:58 | disposition home or self-care (01) ==
LOC: NCHCN 15:57
PROVIDERS: PCP Family Medicine; Visit Provider Family Medicine
DX: R10.11 Right upper quadrant pain (principal)
CPT/HCPCS: 80053; 85025

== ENCOUNTER 2024-09-27 17:54 | Outpatient (REF) | payer MEDICARE, SELFPAY ==
[2024-09-27 21:32] LABS: Anion Gap 4.9 mmol/L (3-11); BUN 18 mg/dL (7-18); CO2 30.1 mmol/L (21.0-32.0); Calcium 9.3 mg/dL (8.5-10.1); Chloride 100 mmol/L (98-107); Estimated GFR 86.83 (mL/min/1.73m2); Glucose 100 mg/dL (74-106); Potassium 4.6 mmol/L (3.5-5.1); Sodium 135 mmol/L (136-145)
== END 2024-09-27 17:55 | disposition home or self-care (01) ==
LOC: NCHCN 17:54
PROVIDERS: PCP Family Medicine; Visit Provider Family Medicine
DX: I10 Essential (primary) hypertension (principal)
CPT/HCPCS: 80048

== ENCOUNTER 2024-11-07 17:04 | Outpatient (REF) | payer MEDICARE, SELFPAY ==
[2024-11-07 14:54] LABS: Abs Immature Grans 0.03 10^3/uL (0.0-0.06); HCT 34.3 % (36.0-46.0); HGB 11.4 g/dL (11.2-15.7); Immature Grans % 0.3 %; MCH 29.9 pg (27.0-33.0); MCHC 33.2 % (32.0-36.0); MCV 90 fL (80-95); MPV 10.6 fL (8.0-11.0); Platelet Count 410 10^3/uL (130-400); RBC 3.81 10^6/uL (3.93-5.22); RDW 14.2 % (11.7-14.6); RDW-SD 46.8 fL; WBC 9.42 10^3/uL (4.4-10.8)
[2024-11-07 18:21] LABS: ALT 58 U/L (14-59); AST 30 U/L (15-37); Albumin 3.3 g/dL (3.4-5.0); Alkaline Phosphatase 296 U/L (46-116); Anion Gap 7.3 mmol/L (3-11); BUN 23 mg/dL (7-18); Bilirubin, Total 0.2 mg/dL (0.2-1.0); CO2 25.7 mmol/L (21.0-32.0); Calcium 9.7 mg/dL (8.5-10.1); Chloride 101 mmol/L (98-107); Estimated GFR 50.48 (mL/min/1.73m2); Glucose 97 mg/dL (74-106); Potassium 5.0 mmol/L (3.5-5.1); Sodium 134 mmol/L (136-145); Total Protein 7.3 g/dL (6.4-8.2)
== END 2024-11-07 17:05 | disposition home or self-care (01) ==
LOC: NCHCN 17:04
PROVIDERS: PCP Family Medicine; Visit Provider Internal Medicine
DX: D72.829 Elevated white blood cell count, unspecified (principal)
CPT/HCPCS: 80053; 85025